=== PATIENT | female | born 1935 | race Caucasian/White ===

== ENCOUNTER → 2016-09-15 | Outpatient (REF) | payer MEDICARE, OTHER ==
[~2016-09-15] MED LIST: ACET650T2 PO; ALLO100T PO; AMLO25TA PO; AMLO5TAB2 PO; ASPI81TA85 PO; CALC600T7 PO; CALCTAB43 PO; CARV25TA PO; CEPA5.4L2 MT; CORE25TA PO; DULC5TAB PO; FERR325T3 PO; FLON0.054; GLIP5TAB8 PO; GLYB5TA PO; HYDR-3713 PO; HYDR-4266 PO; HYDR12.55 PO; INSULADS SC; K-TA10TA2 PO; LANTINJ4 SC; LASI20TA PO; LEVO200T4 PO; LEVO25TA5 PO; LEVO75TA4 PO; MULTCAP PO; PROT1TAB2 PO; PROZ40CA PO; REQU1TAB14 PO; ROCA0.25 PO; SIMV40TA2 PO; TYLE325T5 PO; TYLE650T30 PO; VITA200016 PO; XANA0.25 PO; ZOCO40TA PO; robitussin PO
[2016-09-15 18:10] LABS: FREE T4 1.36 NG/DL (0.76-1.46)
== END ==
LOC: M LAB REF 17:02
PROVIDERS: ATTEND Internal Medicine Nephrology
DX: N18.5 Chronic kidney disease, stage 5 (principal); E03.9 Hypothyroidism, unspecified

== ENCOUNTER → 2016-11-15 | Outpatient (REF) | payer MEDICARE, OTHER ==
[2016-11-15 13:59] LABS: FREE T4 1.16 NG/DL (0.76-1.46); PERCENT SATURATION 25.4 % (13.2-37.4)
== END ==
LOC: M LAB REF 13:05
PROVIDERS: ATTEND Internal Medicine Nephrology
DX: E03.9 Hypothyroidism, unspecified (principal); D63.1 Anemia in chronic kidney disease

== ENCOUNTER 2017-02-11 20:46 | Emergency (ER) | payer MEDICARE, BC, OTHER ==
[~2017-02-11] VITALS: Ht 157.5 cm; Wt 70.0 kg
[~2017-02-11 20:46] MED LIST changes: -ACET650T2 PO; +ACET650T3 PO; -CALCTAB43 PO; +CALCTAB74 PO; +HYDR-3910 PO; -HYDR-4266 PO
[2017-02-11] MEDS ORDERED: LEVO150T7 PO (21:31)
[2017-02-11] MEDS ORDERED: CALC1CAP31 PO (21:31)
[2017-02-11] MEDS ORDERED: FLON1SPR (21:31)
[2017-02-11] MEDS ORDERED: PROC1INJ5 IV (21:31)
[2017-02-11] MEDS ORDERED: GLIM2TAB PO (21:31)
[2017-02-11] MEDS ORDERED: RENA1TAB PO (21:31)
[2017-02-11] MEDS ORDERED: TOLT1CAP4 PO (21:31)
[2017-02-11 22:19] LABS: BASO # 0.1 K/mm3 (0.0-0.2); BASO % 1.1 % (0.0-1.0); EOS # 0.3 K/mm3 (0.0-0.50); EOS % 4.6 % (0.0-3.0); LARGE UNSTAINED CELL # 0.3 K/mm3 (0.0-0.4); LARGE UNSTAINED CELL % 4.1 % (0.0-4.0); LYMPH # 0.4 K/mm3 (1.5-4.5); LYMPH % 5.6 % (24.0-44.0); MEAN CORPUSCULAR HEMOGLOBIN 31.5 pg (27.0-33.0); MEAN CORPUSCULAR HGB CONC 32.1 g/dl (32.0-36.5); MEAN CORPUSCULAR VOLUME 98.2 fl (80.0-96.0); MONO # 0.6 K/mm3 (0.0-0.8); MONO % 8.3 % (0.0-5.0); NEUTROPHILS # 5.4 K/mm3 (1.8-7.7); NEUTROPHILS % 76.2 % (36.0-66.0); PLATELET COUNT, AUTOMATED 200 k/mm3 (150-450); RED CELL DISTRIBUTION WIDTH 17.5 % (11.5-14.5); WHITE BLOOD COUNT 7.1 K/mm3 (4.0-10.0)
[2017-02-11 22:40] LABS: CALCIUM LEVEL 8.9 MG/DL (8.8-10.2); CREATININE FOR GFR 4.62 MG/DL (0.55-1.02); GLOMERULAR FILTRATION RATE 9.7 (>39); POTASSIUM SERUM 3.8 MEQ/L (3.5-5.1)
[2017-02-12 00:12] LABS: ABG BASE EXCESS -3.5 (-2.0-2.0); ABG HCO3 20.5 MEQ/L (22.0-26.0); ABG PARTIAL PRESSURE CO2 33.1 mmHg (35.0-45.0); ABG PARTIAL PRESSURE O2 95.4 mmHg (75.0-100.0); ABG STANDARD HCO3 21.6 MEQ/L (22.0-26.0); ABG TOTAL CO2 21.5 MEQ/L (23.0-31.0)
[2017-02-12 01:49] VITALS: BP 128/78
--- NOTE | 2017-02-12 07:42 | REP ---
Clinical: Dyspnea. Comparison: 10/07/2014. Findings: Chronic cardiomegaly and diffuse chronic interstitial changes are appreciated. Superimposed basilar atelectasis cannot be excluded. No effusion. No pneumothorax. Skeletal structures intact. Impression: Chronic-appearing changes. Cannot exclude subtle superimposed atelectasis. I Signed by Vitaliy Gaxiola MD 02/12/2017 07:34 A
== END 2017-02-12 02:28 | disposition home or self-care (01) ==
LOC: M ED 20:46 → EDBD 20:46 → M ED 02-12 02:28
DX: N18.9 Chronic kidney disease, unspecified (principal); R06.00 Dyspnea, unspecified; R05 Cough; E11.9 Type 2 diabetes mellitus without complications; I12.9 Hypertensive chronic kidney disease with stage 1 through stage 4 chronic kidney disease, or unspecified chronic kidney disease; E78.5 Hyperlipidemia, unspecified; K21.9 Gastro-esophageal reflux disease without esophagitis; E03.9 Hypothyroidism, unspecified; F33.9 Major depressive disorder, recurrent, unspecified; Z79.82 Long term (current) use of aspirin; Z79.899 Other long term (current) drug therapy; Z79.4 Long term (current) use of insulin; Z88.1 Allergy status to other antibiotic agents; Z88.2 Allergy status to sulfonamides

== ENCOUNTER → 2017-03-08 | Outpatient (REF) | payer MEDICARE, OTHER ==
[~2017-03-08] MED LIST changes: +CALC1CAP31 PO; +FLON1SPR; +GLIM2TAB PO; +LEVO150T7 PO; +PROC1INJ5 IV; +RENA1TAB PO; +TOLT1CAP4 PO
[2017-03-08 18:40] LABS: INR 1.07
[2017-03-09 10:33] LABS: HEPATITIS B SURFACE ANTIBODY NEGATIVE (POSITIVE)
== END ==
LOC: M LAB REF 17:01
PROVIDERS: ATTEND Internal Medicine Nephrology
DX: N18.6 End stage renal disease (principal); D68.9 Coagulation defect, unspecified

== ENCOUNTER → 2017-03-10 | Outpatient (CLI) | payer MEDICARE, BC, OTHER ==
[~2017-03-10] MED LIST changes: +HEPARIN 1,000 UNITS/ML 10ML VIAL (FOR RADIOLOGY& DIALYSIS ONLY) As Ordered ONE; +LIDOCAINE 2% MDV 20 ML VIAL As Ordered ONE
--- NOTE | 2017-03-10 11:15 | ROOPDOC ---
[facility] Report Of Operation Report of Operation DATE OF PROCEDURE: 03/10/17 PREPROCEDURE DIAGNOSES: End-stage renal disease requiring hemodialysis. POSTPROCEDURE DIAGNOSES: End-stage renal disease requiring hemodialysis. PROCEDURE: Ultrasound and fluoroscopic guided right internal jugular vein 19 cm tip to cuff tunneled central venous catheter placement. SURGEON: Dr. Martha Ziegler MD ARM REST BUILDER: Virginia Stubbs, photographic reproduction technician INDICATION: Patient is a 81-year-old white female with end-stage renal disease, and who requires access for hemodialysis. Patient was evaluated will undergo right internal jugular vein central venous tunneled catheter placement. Risks benefits and alternative treatment options were discussed with the patient. Benefits included but were not limited to access for hemodialysis. Alternative treatment options included but were not limited to no intervention. The risks included but were not limited to infection, bleeding, pneumothorax, hemothorax, possible need for open surgical intervention, cerebrovascular accident, myocardial infarction, pulmonary embolus, DVT, loss of limb, loss of life and poor outcome. All the patient's questions were answered, the patient understands the risks benefits and alternative treatment options, patient agrees to proceed with a right internal jugular vein tunneled central venous catheter placement. ANESTHESIA: Local with sedation: 20 cc of 2 % lidocaine, no Versed or fentanyl were used.. ESTIMATED BLOOD LOSS: Minimal. IVF: 50 cc FLUOROSCOPIC TIME: 0.5 min. CONTRAST: None COMPLICATIONS: None DRAINS: None SPECIMENS: None IMPLANTS: Right internal jugular vein 19 cm tip to cuff tunneled central venous catheter with insertion of EvenMore PermCath. PROCEDURE: Patient was taken to the angiography suite, placed supine on the angiography room table and after performing a time out confirming the correct patient and procedure, the patient was prepped and draped in a standard surgical fashion. Ultrasound was used to evaluate the right internal jugular vein, which was noted to be easily compressible, free of thrombus and widely patent. Ultrasound was then used to guide cannulation of the right internal jugular vein with a micro-puncture needle after anesthetizing the overlying skin with 2 % lidocaine. Ultrasound guidance for vascular access was performed with concurrent real-time ultrasound visualization of the needle entering into the right internal jugular vein, with permanent recording of the ultrasound guidance with a hard copy image preserved. The micropuncture wire was then advanced to the micropuncture needle which was upsized to a micropuncture sheath. An Amplatz wire was then advanced to the micropuncture sheath under fluoroscopic guidance. The right internal jugular vein was then sequentially dilated under fluoroscopic guidance and an introducer sheath was positioned. A 19 cm tip to cuff catheter was then tunneled through a puncture wound in the right chest and brought out at the puncture wound at the right internal jugular vein entry site after anesthetizing the overlying skin with 2 % lidocaine. The catheter was advanced through the introducer sheath and positioned with the tip in the superior vena cava right atrial junction under fluoroscopic guidance. Both ports of the catheter were then aspirated, noted to aspirate easily and then flushed with heparinized saline. The catheter was secured to the anterior chest wall using 2-0 Prolene suture after anesthetizing the overlying skin with 2 % lidocaine. The puncture wound in the right neck was closed using a 4-0 Vicryl suture in an inverted interrupted fashion. All instrument, sponge and needle counts were correct at the end of the case. There were no complications. Dr. Ziegler was present for and directed the entire case. The tunneled central venous catheter is stable for use for hemodialysis access. RADIOLOGIC SUPERVISION AND INTERPRETATION: The initial ultrasound of the right internal jugular vein showed the vein to be widely patent, easily compressible and free of thrombus. Ultrasound was then used to guide cannulation of the right internal jugular vein with a hard copy image preserved. Ultrasound guidance for vascular access was performed with concurrent real-time ultrasound visualization of the needle entering into the right internal jugular vein, with permanent recording of the ultrasound guidance with a hard copy image preserved.The right internal jugular vein was sequentially dilated under fluoroscopic guidance. The final fluoroscopic image showed the catheter to be in good position and good alignment with the tip in the superior vena cava right atrial junction, with no pneumothorax or hemothorax present. The tunneled central venous catheter is stable for used for hemodialysis access. Lopez Ziegler MD Mar 10, 2017 11:15
== END | disposition home or self-care (01) ==
LOC: M IRPRO 07:34
PROVIDERS: ATTEND Internal Medicine Nephrology
DX: N18.6 End stage renal disease (principal)
CPT/HCPCS: 36561; 76937; 77001; C1750; C1769; C1894

== ENCOUNTER → 2017-05-10 | Outpatient (REF) | payer MEDICARE, OTHER ==
[~2017-05-10] MED LIST changes: -HEPARIN 1,000 UNITS/ML 10ML VIAL (FOR RADIOLOGY& DIALYSIS ONLY) As Ordered ONE; -LIDOCAINE 2% MDV 20 ML VIAL As Ordered ONE
== END ==
LOC: M LAB REF 16:56
PROVIDERS: ATTEND Internal Medicine Nephrology
DX: N18.6 End stage renal disease (principal); N39.0 Urinary tract infection, site not specified

== ENCOUNTER → 2017-06-27 | Outpatient (REF) | payer MEDICARE, OTHER | LOC: M LAB REF 13:08 | PROVIDERS: ATTEND Internal Medicine Nephrology | DX: N18.6 End stage renal disease (principal); N39.0 Urinary tract infection, site not specified ==

== ENCOUNTER 2017-07-08 11:48 | Day surgery (SDC) | payer MEDICARE, BC, OTHER ==
[~2017-07-08] VITALS: Ht 165.1 cm; Wt 67.1 kg
[2017-07-08] MEDS ORDERED: MORPHINE 2 MG/ML 1ML SYRINGE As Ordered ONE (15:06)
[2017-07-08] MEDS ORDERED: MORPHINE 2 MG/ML 1ML SYRINGE IV ONE (15:15)
[2017-07-08] MEDS ORDERED: ONDANSETRON 4MG/2ML VIAL (J2405) As Ordered ONE (16:14)
[2017-07-08] MEDS ORDERED: LIDOCAINE 2% INJ 100 MG/5 ML SDV (FOR ANES.) As Ordered ONE (16:14)
[2017-07-08] MEDS ORDERED: PROPOFOL 200 MG/20 ML VIAL As Ordered ONE ×2 (16:14→17:22)
[2017-07-08] MEDS ORDERED: MIDAZOLAM INJ 2 MG/2 ML VIAL (J2250) As Ordered ONE (16:15)
[2017-07-08] MEDS ORDERED: fentaNYL 100 MCG/2 ML INJECTION (J3010) As Ordered ONE ×2 (16:15→17:40)
[2017-07-08] MEDS ORDERED: LIDOCAINE 1% SDV INJ 30 ML VIAL As Ordered ONE (16:42)
[2017-07-08] MEDS ORDERED: BUPIVACAINE HCL 0.5% 30 ML VIAL As Ordered ONE (16:43)
[2017-07-08] MEDS ORDERED: HEPARIN SOD (PORCINE) 5000 UNITS/ML VIAL As Ordered ONE (16:43)
[2017-07-08] MEDS ORDERED: KETAMINE HCL 200 MG/20 ML VIAL As Ordered ONE (17:29)
[2017-07-08] MEDS ORDERED: LABETALOL HCL 100 MG/20 ML VIAL As Ordered ONE (17:36)
[2017-07-08] MEDS ORDERED: METOPROLOL 5 MG/5 ML VIAL As Ordered ONE (17:39)
[2017-07-08 18:45] VITALS: BP 182/86
--- NOTE | 2017-07-29 11:42 | RO ---
DATE OF PROCEDURE: 07/08/2017 PREPROCEDURE DIAGNOSES: End-stage renal disease, right internal jugular vein PermCath. POSTPROCEDURE DIAGNOSES: End-stage renal disease, right internal jugular vein PermCath. PROCEDURE: Left brachiocephalic arteriovenous fistula formation. ATTENDING SURGEON: Dr. Montserrat Ziegler DIRECTOR [place]: None. ANESTHESIA: Local monitored anesthesia care (MAC). INDICATION: Patient is an 82-year-old female with end-stage renal disease who dialyzes through a right internal jugular vein PermCath who requires long-term access. Patient was evaluated, felt to be a good candidate for a left brachiocephalic arteriovenous fistula. Risks, benefits, and alternative treatment options were discussed with the patient. ESTIMATED BLOOD LOSS: 35 mL. IV FLUIDS: 600 mL. HEPARIN: None. COMPLICATIONS: None. DRAINS: None. SPECIMENS: None. IMPLANTS: None. DESCRIPTION OF PROCEDURE: Patient was taken to the operating room, placed supine on the operating room table, and then prepped and draped in a standard surgical fashion. An incision was made transversely at the antecubital fossa after anesthetizing the overlying skin. The cephalic vein and brachial artery were easily identifiable and dissected free proximally and distally and encircled with Vesseloops. The cephalic vein was transected as far distal as possible with the remnant ligated with a #0 silk suture. The cephalic vein was then dilated with heparinized saline, which was noted to dilate easily and flush easily. Cephalic vein was then anastomosed to the brachial artery in an end-to-side fashion using #6-0 Prolene suture. There was good flow in the fistula at the completion of the anastomosis as well as in the brachial artery distal to the arteriovenous anastomosis with Doppler ultrasound evaluation. Hemostasis was obtained, after which the incision was closed using #2-0 Vicryl to approximate the deeper layers and #3-0 Monocryl to approximate the skin in a running subcuticular fashion. All instruments, sponge, and needle counts were correct at the end of the case. There were no complications. Dr. Ziegler was present for and directed the entire case. Patient was transferred to the recovery room and subsequently discharged in stable condition.
== END 2017-07-08 19:01 | disposition home or self-care (01) ==
LOC: M SDC 11:48
PROVIDERS: ATTEND Surgery Vascular Surgery
DX: N18.6 End stage renal disease (principal); I12.0 Hypertensive chronic kidney disease with stage 5 chronic kidney disease or end stage renal disease; E03.9 Hypothyroidism, unspecified; I50.9 Heart failure, unspecified; I35.9 Nonrheumatic aortic valve disorder, unspecified; I48.91 Unspecified atrial fibrillation; E78.00 Pure hypercholesterolemia, unspecified; E11.9 Type 2 diabetes mellitus without complications; M10.9 Gout, unspecified; D64.9 Anemia, unspecified; R29.898 Other symptoms and signs involving the musculoskeletal system; M12.9 Arthropathy, unspecified; M54.5 Low back pain; I69.928 Other speech and language deficits following unspecified cerebrovascular disease; F41.9 Anxiety disorder, unspecified; F32.9 Major depressive disorder, single episode, unspecified; R06.02 Shortness of breath; R32 Unspecified urinary incontinence; Z88.1 Allergy status to other antibiotic agents; Z88.2 Allergy status to sulfonamides; Z79.899 Other long term (current) drug therapy; Z79.82 Long term (current) use of aspirin; Z87.891 Personal history of nicotine dependence
CPT/HCPCS: 36415; 36821; 84132; J2250; J2405; J3010

== ENCOUNTER → 2017-09-05 | Outpatient (CLI) | payer MEDICARE, BC, OTHER | LOC: M PAIN 13:00 | DX: G62.9 Polyneuropathy, unspecified (principal); M54.2 Cervicalgia; E11.9 Type 2 diabetes mellitus without complications; N18.4 Chronic kidney disease, stage 4 (severe); I12.9 Hypertensive chronic kidney disease with stage 1 through stage 4 chronic kidney disease, or unspecified chronic kidney disease; E03.9 Hypothyroidism, unspecified; E78.5 Hyperlipidemia, unspecified; I48.91 Unspecified atrial fibrillation; Z79.82 Long term (current) use of aspirin; Z79.84 Long term (current) use of oral hypoglycemic drugs; Z79.899 Other long term (current) drug therapy; Z87.891 Personal history of nicotine dependence; Z88.8 Allergy status to other drugs, medicaments and biological substances; Z87.19 Personal history of other diseases of the digestive system | CPT/HCPCS: G0463 ==

== ENCOUNTER → 2017-09-09 | Outpatient (CLI) | payer MEDICARE, BC, OTHER ==
[~2017-09-09] MED LIST changes: -ACET650T3 PO; -ALLO100T PO; -AMLO25TA PO; -AMLO5TAB2 PO; -ASPI81TA85 PO; -CALC1CAP31 PO; -CALC600T7 PO; -CALCTAB74 PO; -CARV25TA PO; -CEPA5.4L2 MT; -CORE25TA PO; -DULC5TAB PO; -FERR325T3 PO; -FLON0.054; -FLON1SPR; -GLIM2TAB PO; -GLIP5TAB8 PO; -GLYB5TA PO; -HYDR-3713 PO; -HYDR-3910 PO; -HYDR12.55 PO; -INSULADS SC; +ISOVUE-300 61% 50ML VIAL (Q9967) As Ordered; -K-TA10TA2 PO; -LANTINJ4 SC; -LASI20TA PO; -LEVO150T7 PO; -LEVO200T4 PO; -LEVO25TA5 PO; -LEVO75TA4 PO; +MIDAZOLAM INJ 2 MG/2 ML VIAL (J2250) As Ordered; -MULTCAP PO; -PROC1INJ5 IV; -PROT1TAB2 PO; -PROZ40CA PO; -RENA1TAB PO; -REQU1TAB14 PO; -ROCA0.25 PO; -SIMV40TA2 PO; -TOLT1CAP4 PO; -TYLE325T5 PO; -TYLE650T30 PO; -VITA200016 PO; -XANA0.25 PO; -ZOCO40TA PO; +fentaNYL 100 MCG/2 ML INJECTION (J3010) As Ordered; -robitussin PO
== END | disposition home or self-care (01) ==
LOC: M IRPRO 11:48
DX: T82.858A Stenosis of other vascular prosthetic devices, implants and grafts, initial encounter (principal)
CPT/HCPCS: 36902

== ENCOUNTER → 2017-10-03 | Outpatient (CLI) | payer MEDICARE, BC, OTHER | LOC: M PAIN 13:00 | DX: G62.9 Polyneuropathy, unspecified (principal); M54.2 Cervicalgia; N18.4 Chronic kidney disease, stage 4 (severe); E11.9 Type 2 diabetes mellitus without complications; I48.91 Unspecified atrial fibrillation; I12.9 Hypertensive chronic kidney disease with stage 1 through stage 4 chronic kidney disease, or unspecified chronic kidney disease; E03.9 Hypothyroidism, unspecified; E78.5 Hyperlipidemia, unspecified; Z79.4 Long term (current) use of insulin; Z79.82 Long term (current) use of aspirin; Z79.891 Long term (current) use of opiate analgesic; Z79.899 Other long term (current) drug therapy; Z87.19 Personal history of other diseases of the digestive system; Z87.891 Personal history of nicotine dependence; Z88.8 Allergy status to other drugs, medicaments and biological substances; Z86.73 Personal history of transient ischemic attack (TIA), and cerebral infarction without residual deficits | CPT/HCPCS: G0463 ==

== ENCOUNTER → 2017-12-02 | Outpatient (CLI) | payer MEDICARE, BC, OTHER ==
[~2017-12-02] MED LIST changes: -ISOVUE-300 61% 50ML VIAL (Q9967) As Ordered; +LIDOCAINE 2% MDV 20 ML VIAL As Ordered; -MIDAZOLAM INJ 2 MG/2 ML VIAL (J2250) As Ordered; -fentaNYL 100 MCG/2 ML INJECTION (J3010) As Ordered
== END | disposition home or self-care (01) ==
LOC: M IRPRO 09:57
DX: Z45.2 Encounter for adjustment and management of vascular access device (principal); N18.6 End stage renal disease
CPT/HCPCS: 36589

== ENCOUNTER → 2017-12-12 | Outpatient (CLI) | payer MEDICARE, BC, OTHER | LOC: M PAIN 13:30 | DX: G62.9 Polyneuropathy, unspecified (principal); G89.29 Other chronic pain; N18.4 Chronic kidney disease, stage 4 (severe); E11.22 Type 2 diabetes mellitus with diabetic chronic kidney disease; I12.9 Hypertensive chronic kidney disease with stage 1 through stage 4 chronic kidney disease, or unspecified chronic kidney disease; E78.5 Hyperlipidemia, unspecified; E03.9 Hypothyroidism, unspecified; Z79.82 Long term (current) use of aspirin; Z79.4 Long term (current) use of insulin; Z79.891 Long term (current) use of opiate analgesic; Z79.899 Other long term (current) drug therapy; Z88.2 Allergy status to sulfonamides; Z88.8 Allergy status to other drugs, medicaments and biological substances; Z99.2 Dependence on renal dialysis; Z86.79 Personal history of other diseases of the circulatory system; Z87.891 Personal history of nicotine dependence | CPT/HCPCS: G0463 ==

== ENCOUNTER → 2018-02-13 | Outpatient (CLI) | payer MEDICARE, BC, OTHER | LOC: M PAIN 13:15 | DX: G62.9 Polyneuropathy, unspecified (principal); G89.29 Other chronic pain; N18.4 Chronic kidney disease, stage 4 (severe); E11.22 Type 2 diabetes mellitus with diabetic chronic kidney disease; I12.9 Hypertensive chronic kidney disease with stage 1 through stage 4 chronic kidney disease, or unspecified chronic kidney disease; Z79.82 Long term (current) use of aspirin; Z79.4 Long term (current) use of insulin; Z79.891 Long term (current) use of opiate analgesic; Z79.899 Other long term (current) drug therapy; Z99.2 Dependence on renal dialysis; Z88.2 Allergy status to sulfonamides; Z88.8 Allergy status to other drugs, medicaments and biological substances; Z86.79 Personal history of other diseases of the circulatory system; Z87.891 Personal history of nicotine dependence; Z86.73 Personal history of transient ischemic attack (TIA), and cerebral infarction without residual deficits | CPT/HCPCS: G0463 ==

== ENCOUNTER → 2018-02-27 | Outpatient (REF) | payer MEDICARE, BC, OTHER ==
[2018-02-27 18:40] LABS: APPEARANCE, URINE CLOUDY (CLEAR); BACTERIA, URINE AUTO 2+ (NEGATIVE); BILIRUBIN, URINE AUTO NEGATIVE (NEGATIVE); BLOOD, URINE BLOOD 2+ (NEGATIVE); COLOR, URINE YELLOW (YELLOW); GLUCOSE, URINE (UA) AUTO 1+ mg/dL (NEGATIVE); KETONE, URINE AUTO NEGATIVE (NEGATIVE); LEUKOCYTE ESTERASE, URINE AUTO 2+ (NEGATIVE); MUCUS, URINE SMALL (NEGATIVE); NITRITE, URINE AUTO NEGATIVE (NEGATIVE); PROTEIN, URINE AUTO 3+ mg/dL (NEGATIVE); RBC, URINE AUTO 43 /HPF (0-3); SPECIFIC GRAVITY URINE AUTO 1.015 (1.002-1.035); SQUAMOUS EPITHELIAL CELL UR AU 9 /HPF (0-6); UROBILINOGEN, URINE AUTO 0.2 mg/dL (0.0-2.0); WBC, URINE AUTO 21 /HPF (0-3)
== END ==
LOC: M LAB REF 16:55
DX: N39.0 Urinary tract infection, site not specified (principal); N18.6 End stage renal disease; R31.9 Hematuria, unspecified
CPT/HCPCS: 81001

== ENCOUNTER 2018-04-22 19:46 | Inpatient (IN) | payer MEDICARE, BC, OTHER ==
[2018-04-22 21:00] LABS: BASO # 0.1 10^3/uL (0.0-0.2); BASO % 0.7 % (0.0-1.0); EOS # 0.2 10^3/uL (0.0-0.50); EOS % 3.3 % (0.0-3.0); HEMATOCRIT 31.9 % (36.0-47.0); HEMOGLOBIN 10.9 g/dl (12.0-15.5); IMMATURE GRANULOCYTE % 0.4 % (0-3.0); LYMPH % 14.1 % (24.0-44.0); MEAN CORPUSCULAR HEMOGLOBIN 32.3 pg (27.0-33.0); MEAN CORPUSCULAR HGB CONC 34.2 g/dl (32.0-36.5); MEAN CORPUSCULAR VOLUME 94.7 fl (80.0-96.0); MONO # 0.8 10^3/uL (0.0-0.8); MONO % 11.5 % (0.0-5.0); NEUTROPHILS # 4.9 10^3/uL (1.8-7.7); PLATELET COUNT, AUTOMATED 161 10^3/uL (150-450); RED BLOOD COUNT 3.37 10^6/uL (4.00-5.40); RED CELL DISTRIBUTION WIDTH 13.2 % (11.5-14.5)
[2018-04-22] MEDS: cefTRIAXone SOD 500 MG in D5W MINI-BAG PLUS 50 ML IV (21:00)
[2018-04-22] MEDS ORDERED: CEFTRIAXONE SOD IV (21:15)
[2018-04-22] MEDS ORDERED: D5W MINI IV (21:15)
[2018-04-22 21:18] LABS: AMMONIA 17 uMOL/L (<32)
[2018-04-22 21:30] LABS: ALBUMIN 3.1 GM/DL (3.2-5.2); ALBUMIN/GLOBULIN RATIO 0.62 (1.00-1.93); ALKALINE PHOSPHATASE 125 U/L (45-117); ALT/SGPT 12 U/L (12-78); ANION GAP 12 MEQ/L (8-16); AST/SGOT 20 U/L (7-37); BILIRUBIN,DIRECT 0.2 MG/DL (0.0-0.2); BILIRUBIN,TOTAL 0.7 MG/DL (0.2-1.0); BLOOD UREA NITROGEN 12 MG/DL (7-18); CALCIUM LEVEL 9.3 MG/DL (8.8-10.2); CARBON DIOXIDE LEVEL 29 MEQ/L (21-32); CHLORIDE LEVEL 93 MEQ/L (98-107); CPK CREATINE PHOSPHOKINASE 77 U/L (26-192); CREATININE FOR GFR 2.51 MG/DL (0.55-1.30); FREE THYROXINE INDEX 5.1 % (1.3-4.8); GLOMERULAR FILTRATION RATE 19.6 (>32); GLUCOSE, FASTING 157 MG/DL (70-100); MB/CK RELATIVE INDEX 1.69 (< OR =4); POTASSIUM SERUM 3.1 MEQ/L (3.5-5.1); SODIUM LEVEL 134 MEQ/L (136-145); T UPTAKE 38 % (30-39); THYROXINE (T4) 13.5 UG/DL (4.5-12.0); TOTAL PROTEIN 8.1 GM/DL (6.4-8.2); TROPONIN I 0.02 NG/ML (< 0.10)
[2018-04-22 21:31] LABS: ABG BASE EXCESS 4.5 (-2.0-2.0); ABG HCO3 25.1 MEQ/L (22.0-26.0); ABG O2 SATURATION 94.4 % (95.0-99.0); ABG PARTIAL PRESSURE CO2 25.9 mmHg (35.0-45.0); ABG PARTIAL PRESSURE O2 65.3 mmHg (75.0-100.0); ABG STANDARD HCO3 28.4 MEQ/L (22.0-26.0); ABG TOTAL CO2 25.9 MEQ/L (23.0-31.0)
[2018-04-22 21:38] LABS: ABG pH (ARTERIAL) 7.605 UNITS (7.350-7.450)
[2018-04-22] MEDS: MORPHINE 4 MG/ML 1ML VIAL/SYRINGE (J2270) IV (21:45)
[2018-04-22] MEDS: cloNIDine 0.2 MG TAB PO (22:45)
[2018-04-22] MEDS: MORPHINE 10 MG/ML 1ML VIAL (J2270) IV (22:45)
[2018-04-22] MEDS ORDERED: ISOVUE-370 76% 100ML VIAL (Q9967) As Ordered (22:50)
[2018-04-22] MEDS ORDERED: ONDANSETRON 4MG/2ML VIAL (J2405) As Ordered (23:49)
[2018-04-23] MEDS ORDERED: IPRATROPIUM 0.5MG/ALBUTEROL 2.5MG INH SOL UD 3ML (DUONEB)(J7620) NEB (00:30)
[2018-04-23] MEDS ORDERED: ACETAMINOPHEN TAB 650MG DOSE (2X325MG) PO (00:30)
[2018-04-23] MEDS ORDERED: ONDANSETRON 4MG/2ML VIAL (J2405) IV (00:30)
[2018-04-23] MEDS ORDERED: GLUCOSE 4 GM CHEW TABLET PO (00:30)
[2018-04-23] MEDS ORDERED: FLUTICASONE PROP 0.05% NASAL SPRAY 16 GM (FLONASE) ×2 (00:30)
[2018-04-23] MEDS ORDERED: GLUCAGON FOR INJ 1 MG VIAL (J1610) SC (00:30)
[2018-04-23] MEDS: GABAPENTIN 100 MG CAP PO ×4 (02:12→21:41)
[2018-04-23] MEDS: LEVEMIR (INSULIN DETEMIR) 1 UNITS/0.01ML SC (02:12)
[2018-04-23] MEDS: ALPRAZolam 0.25 MG TAB PO ×2 (02:13→21:41)
[2018-04-23] MEDS: POTASSIUM CHLORIDE 10 MEQ SR TABLET PO (02:13)
[2018-04-23] MEDS: CARVedilol 12.5 MG TAB PO ×3 (02:13→21:00)
[2018-04-23] MEDS: rOPINIRole 0.25 MG TAB(REQUIP) PO ×3 (02:14→21:41)
[2018-04-23] MEDS: AZITHROMYCIN INJ 500 MG, VIAL MATE ADAPTER 1 EACH in D5W 250 ML IV (02:14)
[2018-04-23] MEDS: LEVOTHYROXINE 150MCG TABLET (0.15MG) PO (05:21)
[2018-04-23] MEDS: HEPARIN SOD (PORCINE) 5000 UNITS/ML VIAL SC ×4 (05:21→21:40)
[2018-04-23 05:39] LABS: HEMATOCRIT 30.5 % (36.0-47.0); MEAN CORPUSCULAR HEMOGLOBIN 31.6 pg (27.0-33.0); MEAN CORPUSCULAR HGB CONC 32.8 g/dl (32.0-36.5); MEAN CORPUSCULAR VOLUME 96.5 fl (80.0-96.0); PLATELET COUNT, AUTOMATED 135 10^3/uL (150-450); RED BLOOD COUNT 3.16 10^6/uL (4.00-5.40); RED CELL DISTRIBUTION WIDTH 13.2 % (11.5-14.5); WHITE BLOOD COUNT 6.4 10^3/uL (4.0-10.0)
[2018-04-23 06:06] LABS: ANION GAP 7 MEQ/L (8-16); BLOOD UREA NITROGEN 16 MG/DL (7-18); CALCIUM LEVEL 8.9 MG/DL (8.8-10.2); CARBON DIOXIDE LEVEL 34 MEQ/L (21-32); CHLORIDE LEVEL 96 MEQ/L (98-107); CREATININE FOR GFR 3.13 MG/DL (0.55-1.30); GLOMERULAR FILTRATION RATE 15.2 (>32); GLUCOSE, FASTING 124 MG/DL (70-100); POTASSIUM SERUM 3.6 MEQ/L (3.5-5.1); SODIUM LEVEL 137 MEQ/L (136-145)
[2018-04-23] MEDS: (RENVELA) SEVELAMER **CARBONate** 800 MG TAB PO ×3 (09:14→17:23)
[2018-04-23] MEDS: amLODIPine 5 MG TAB PO (09:16)
[2018-04-23] MEDS: FLUoxetine 20 MG CAP PO (09:16)
[2018-04-23] MEDS: TOLTERODINE TARTRATE 2 MG LA CAP (DETROL LA) PO (09:16)
[2018-04-23] MEDS: ASPIRIN 81 MG ENTERIC TAB PO (09:16)
[2018-04-23] MEDS: HumaLOG INSULIN (NovoLOG) PER UNIT SC ×4 (09:17→21:00)
[2018-04-23 11:23] LABS: BEDSIDE GLUCOSE 39 MG/DL (83-110)
[2018-04-23] MEDS: DEXTROSE 50% 50 ML SYRINGE IV (11:28)
[2018-04-23 11:47] LABS: BEDSIDE GLUCOSE 101 MG/DL (83-110)
[2018-04-23] MEDS: oxyCODONE 5MG TAB PO (14:36)
[2018-04-23 17:04] LABS: BEDSIDE GLUCOSE 133 MG/DL (83-110)
[2018-04-23 20:50] LABS: BEDSIDE GLUCOSE 141 MG/DL (83-110)
[2018-04-23] MEDS: NYSTATIN 100,000 UNITS/GM TOPICAL PWD 15 GM TOP (21:40)
[2018-04-23] MEDS: cefTRIAXone SOD 1 GM in D5W MINI-BAG PLUS 50 ML IV (21:41)
[2018-04-24] MEDS: AZITHROMYCIN INJ 500 MG, VIAL MATE ADAPTER 1 EACH in D5W 250 ML IV (01:26)
[2018-04-24 05:31] LABS: HEMATOCRIT 30.6 % (36.0-47.0); HEMOGLOBIN 9.7 g/dl (12.0-15.5); MEAN CORPUSCULAR HEMOGLOBIN 31.8 pg (27.0-33.0); MEAN CORPUSCULAR HGB CONC 31.7 g/dl (32.0-36.5); MEAN CORPUSCULAR VOLUME 100.3 fl (80.0-96.0); PLATELET COUNT, AUTOMATED 127 10^3/uL (150-450); RED BLOOD COUNT 3.05 10^6/uL (4.00-5.40); RED CELL DISTRIBUTION WIDTH 13.8 % (11.5-14.5); WHITE BLOOD COUNT 7.3 10^3/uL (4.0-10.0)
[2018-04-24] MEDS: LEVOTHYROXINE 150MCG TABLET (0.15MG) PO (05:35)
[2018-04-24] MEDS: HEPARIN SOD (PORCINE) 5000 UNITS/ML VIAL SC ×3 (05:35→21:05)
[2018-04-24 06:04] LABS: ANION GAP 10 MEQ/L (8-16); BLOOD UREA NITROGEN 32 MG/DL (7-18); CALCIUM LEVEL 9.1 MG/DL (8.8-10.2); CARBON DIOXIDE LEVEL 30 MEQ/L (21-32); CHLORIDE LEVEL 94 MEQ/L (98-107); CREATININE FOR GFR 5.06 MG/DL (0.55-1.30); GLOMERULAR FILTRATION RATE 8.7 (>32); GLUCOSE, FASTING 109 MG/DL (70-100); POTASSIUM SERUM 4.4 MEQ/L (3.5-5.1); SODIUM LEVEL 134 MEQ/L (136-145)
[2018-04-24] MEDS: HumaLOG INSULIN (NovoLOG) PER UNIT SC ×4 (07:30→21:00)
[2018-04-24] MEDS: TOLTERODINE TARTRATE 2 MG LA CAP (DETROL LA) PO (08:35)
[2018-04-24] MEDS: (RENVELA) SEVELAMER **CARBONate** 800 MG TAB PO ×3 (08:35→17:35)
[2018-04-24] MEDS: FLUoxetine 20 MG CAP PO (08:35)
[2018-04-24] MEDS: GABAPENTIN 100 MG CAP PO ×3 (08:35→21:05)
[2018-04-24] MEDS: rOPINIRole 0.25 MG TAB(REQUIP) PO ×2 (08:35→21:06)
[2018-04-24] MEDS: amLODIPine 5 MG TAB PO (08:36)
[2018-04-24] MEDS: ASPIRIN 81 MG ENTERIC TAB PO (08:36)
[2018-04-24] MEDS: CARVedilol 12.5 MG TAB PO ×2 (08:36→21:06)
[2018-04-24] MEDS: NYSTATIN 100,000 UNITS/GM TOPICAL PWD 15 GM TOP ×2 (08:36→21:00)
[2018-04-24 11:34] LABS: BEDSIDE GLUCOSE 154 MG/DL (83-110)
[2018-04-24] MEDS ORDERED: DARBEPOETIN 100 MCG/0.5 ML *DIALYSIS* SYRINGE (J0882) IV (12:00)
[2018-04-24 16:47] LABS: BEDSIDE GLUCOSE 131 MG/DL (83-110)
[2018-04-24] MEDS: oxyCODONE 5MG TAB PO (18:23)
[2018-04-24 21:03] LABS: BEDSIDE GLUCOSE 165 MG/DL (83-110)
[2018-04-24] MEDS: cefTRIAXone SOD 1 GM in D5W MINI-BAG PLUS 50 ML IV (21:05)
[2018-04-24] MEDS: ALPRAZolam 0.25 MG TAB PO (21:06)
[2018-04-25] MEDS: oxyCODONE 5MG TAB PO ×2 (02:25→16:23)
[2018-04-25] MEDS: AZITHROMYCIN INJ 500 MG, VIAL MATE ADAPTER 1 EACH in D5W 250 ML IV (02:25)
[2018-04-25] MEDS: FLUoxetine 20 MG CAP PO (06:26)
[2018-04-25] MEDS: GABAPENTIN 100 MG CAP PO ×3 (06:26→20:20)
[2018-04-25] MEDS: rOPINIRole 0.25 MG TAB(REQUIP) PO ×2 (06:26→20:19)
[2018-04-25] MEDS: (RENVELA) SEVELAMER **CARBONate** 800 MG TAB PO ×3 (06:26→18:00)
[2018-04-25] MEDS: LEVOTHYROXINE 150MCG TABLET (0.15MG) PO (06:27)
[2018-04-25] MEDS: ASPIRIN 81 MG ENTERIC TAB PO (06:27)
[2018-04-25] MEDS: HumaLOG INSULIN (NovoLOG) PER UNIT SC ×4 (06:27→21:00)
[2018-04-25] MEDS: TOLTERODINE TARTRATE 2 MG LA CAP (DETROL LA) PO (06:27)
[2018-04-25] MEDS: HEPARIN SOD (PORCINE) 5000 UNITS/ML VIAL SC ×3 (06:27→21:17)
[2018-04-25] MEDS: amLODIPine 5 MG TAB PO (06:28)
[2018-04-25] MEDS: CARVedilol 12.5 MG TAB PO ×2 (06:28→20:20)
[2018-04-25 06:38] LABS: BEDSIDE GLUCOSE 135 MG/DL (83-110)
[2018-04-25 06:38] LABS: HEMATOCRIT 30.3 % (36.0-47.0); HEMOGLOBIN 9.9 g/dl (12.0-15.5); MEAN CORPUSCULAR HEMOGLOBIN 31.7 pg (27.0-33.0); MEAN CORPUSCULAR HGB CONC 32.7 g/dl (32.0-36.5); MEAN CORPUSCULAR VOLUME 97.1 fl (80.0-96.0); PLATELET COUNT, AUTOMATED 121 10^3/uL (150-450); RED BLOOD COUNT 3.12 10^6/uL (4.00-5.40); RED CELL DISTRIBUTION WIDTH 13.3 % (11.5-14.5); WHITE BLOOD COUNT 5.7 10^3/uL (4.0-10.0)
[2018-04-25 07:04] LABS: ANION GAP 7 MEQ/L (8-16); BLOOD UREA NITROGEN 47 MG/DL (7-18); CALCIUM LEVEL 8.4 MG/DL (8.8-10.2); CARBON DIOXIDE LEVEL 32 MEQ/L (21-32); CHLORIDE LEVEL 86 MEQ/L (98-107); GLOMERULAR FILTRATION RATE 6.8 (>32); GLUCOSE, FASTING 158 MG/DL (70-100); POTASSIUM SERUM 4.8 MEQ/L (3.5-5.1); SODIUM LEVEL 125 MEQ/L (136-145)
[2018-04-25] MEDS: NYSTATIN 100,000 UNITS/GM TOPICAL PWD 15 GM TOP ×2 (08:37→20:20)
[2018-04-25] MEDS: LIDOCAINE 1% SDV 5 ML VIAL SQ (11:45)
[2018-04-25] MEDS: HEPARIN 1,000 UNITS/ML 10ML VIAL (FOR RADIOLOGY& DIALYSIS ONLY) IV (11:45)
[2018-04-25 13:26] LABS: BEDSIDE GLUCOSE 147 MG/DL (83-110)
[2018-04-25 17:09] LABS: BEDSIDE GLUCOSE 166 MG/DL (83-110)
[2018-04-25] MEDS: CEFDINIR 300 MG CAP (OMNICEF) PO (18:00)
[2018-04-25] MEDS: ALPRAZolam 0.25 MG TAB PO (20:19)
[2018-04-25] MEDS ORDERED: CEFDINIR 300 MG CAP (OMNICEF) PO (21:00)
[2018-04-25 21:10] LABS: BEDSIDE GLUCOSE 165 MG/DL (83-110)
[2018-04-26] MEDS: HEPARIN SOD (PORCINE) 5000 UNITS/ML VIAL SC ×3 (05:28→21:29)
[2018-04-26] MEDS: LEVOTHYROXINE 150MCG TABLET (0.15MG) PO (06:06)
[2018-04-26 07:11] LABS: HEMATOCRIT 29.4 % (36.0-47.0); HEMOGLOBIN 9.5 g/dl (12.0-15.5); MEAN CORPUSCULAR HEMOGLOBIN 31.9 pg (27.0-33.0); MEAN CORPUSCULAR HGB CONC 32.3 g/dl (32.0-36.5); MEAN CORPUSCULAR VOLUME 98.7 fl (80.0-96.0); PLATELET COUNT, AUTOMATED 144 10^3/uL (150-450); RED BLOOD COUNT 2.98 10^6/uL (4.00-5.40); RED CELL DISTRIBUTION WIDTH 13.6 % (11.5-14.5); WHITE BLOOD COUNT 7.4 10^3/uL (4.0-10.0)
[2018-04-26] MEDS: HumaLOG INSULIN (NovoLOG) PER UNIT SC ×4 (07:30→20:33)
[2018-04-26 07:47] LABS: ANION GAP 10 MEQ/L (8-16); BLOOD UREA NITROGEN 32 MG/DL (7-18); CALCIUM LEVEL 8.6 MG/DL (8.8-10.2); CARBON DIOXIDE LEVEL 27 MEQ/L (21-32); CHLORIDE LEVEL 97 MEQ/L (98-107); GLUCOSE, FASTING 134 MG/DL (70-100); POTASSIUM SERUM 4.2 MEQ/L (3.5-5.1); SODIUM LEVEL 134 MEQ/L (136-145)
[2018-04-26] MEDS: TOLTERODINE TARTRATE 2 MG LA CAP (DETROL LA) PO (08:55)
[2018-04-26] MEDS: ASPIRIN 81 MG ENTERIC TAB PO (08:56)
[2018-04-26] MEDS: GABAPENTIN 100 MG CAP PO ×3 (08:56→20:34)
[2018-04-26] MEDS: (RENVELA) SEVELAMER **CARBONate** 800 MG TAB PO ×3 (08:56→17:38)
[2018-04-26] MEDS: amLODIPine 5 MG TAB PO (08:56)
[2018-04-26] MEDS: rOPINIRole 0.25 MG TAB(REQUIP) PO ×2 (08:56→20:34)
[2018-04-26] MEDS: FLUoxetine 20 MG CAP PO (08:56)
[2018-04-26] MEDS: CARVedilol 12.5 MG TAB PO ×2 (08:57→20:32)
[2018-04-26] MEDS: NYSTATIN 100,000 UNITS/GM TOPICAL PWD 15 GM TOP ×2 (08:58→20:36)
[2018-04-26] MEDS: oxyCODONE 5MG TAB PO ×2 (09:06→20:34)
[2018-04-26 11:44] LABS: BEDSIDE GLUCOSE 161 MG/DL (83-110)
[2018-04-26 17:03] LABS: BEDSIDE GLUCOSE 145 MG/DL (83-110)
[2018-04-26 19:36] LABS: BEDSIDE GLUCOSE 178 MG/DL (83-110)
[2018-04-26] MEDS: ALPRAZolam 0.25 MG TAB PO (20:34)
[2018-04-27] MEDS: HEPARIN SOD (PORCINE) 5000 UNITS/ML VIAL SC ×3 (05:55→21:24)
[2018-04-27] MEDS: LEVOTHYROXINE 150MCG TABLET (0.15MG) PO (06:06)
[2018-04-27] MEDS: TOLTERODINE TARTRATE 2 MG LA CAP (DETROL LA) PO (06:06)
[2018-04-27] MEDS: (RENVELA) SEVELAMER **CARBONate** 800 MG TAB PO ×3 (06:06→17:18)
[2018-04-27] MEDS: amLODIPine 5 MG TAB PO (06:07)
[2018-04-27] MEDS: FLUoxetine 20 MG CAP PO (06:07)
[2018-04-27] MEDS: NYSTATIN 100,000 UNITS/GM TOPICAL PWD 15 GM TOP ×2 (06:07→21:23)
[2018-04-27] MEDS: GABAPENTIN 100 MG CAP PO ×3 (06:07→21:22)
[2018-04-27] MEDS: ASPIRIN 81 MG ENTERIC TAB PO (06:07)
[2018-04-27] MEDS: CARVedilol 12.5 MG TAB PO ×2 (06:08→21:23)
[2018-04-27] MEDS: rOPINIRole 0.25 MG TAB(REQUIP) PO ×2 (06:08→21:22)
[2018-04-27 06:11] LABS: HEMATOCRIT 29.1 % (36.0-47.0); HEMOGLOBIN 9.4 g/dl (12.0-15.5); MEAN CORPUSCULAR HEMOGLOBIN 31.6 pg (27.0-33.0); MEAN CORPUSCULAR HGB CONC 32.3 g/dl (32.0-36.5); PLATELET COUNT, AUTOMATED 154 10^3/uL (150-450); RED BLOOD COUNT 2.97 10^6/uL (4.00-5.40); RED CELL DISTRIBUTION WIDTH 13.5 % (11.5-14.5); WHITE BLOOD COUNT 5.6 10^3/uL (4.0-10.0)
[2018-04-27] MEDS: oxyCODONE 5MG TAB PO ×3 (06:15→21:36)
[2018-04-27 06:34] LABS: ANION GAP 7 MEQ/L (8-16); BLOOD UREA NITROGEN 40 MG/DL (7-18); CALCIUM LEVEL 8.7 MG/DL (8.8-10.2); CARBON DIOXIDE LEVEL 29 MEQ/L (21-32); CHLORIDE LEVEL 93 MEQ/L (98-107); CREATININE FOR GFR 5.62 MG/DL (0.55-1.30); GLOMERULAR FILTRATION RATE 7.7 (>32); GLUCOSE, FASTING 113 MG/DL (70-100); POTASSIUM SERUM 4.1 MEQ/L (3.5-5.1); SODIUM LEVEL 129 MEQ/L (136-145)
[2018-04-27] MEDS: HumaLOG INSULIN (NovoLOG) PER UNIT SC ×4 (07:30→20:59)
[2018-04-27 17:04] LABS: BEDSIDE GLUCOSE 188 MG/DL (83-110)
[2018-04-27] MEDS: CEFDINIR 300 MG CAP (OMNICEF) PO (17:18)
[2018-04-27 20:33] LABS: BEDSIDE GLUCOSE 153 MG/DL (83-110)
[2018-04-27] MEDS: ALPRAZolam 0.25 MG TAB PO (21:22)
[2018-04-28] MEDS: LEVOTHYROXINE 150MCG TABLET (0.15MG) PO (05:35)
[2018-04-28] MEDS: HEPARIN SOD (PORCINE) 5000 UNITS/ML VIAL SC (05:35)
[2018-04-28 06:21] LABS: HEMATOCRIT 28.9 % (36.0-47.0); HEMOGLOBIN 9.2 g/dl (12.0-15.5); MEAN CORPUSCULAR HEMOGLOBIN 31.5 pg (27.0-33.0); MEAN CORPUSCULAR HGB CONC 31.8 g/dl (32.0-36.5); PLATELET COUNT, AUTOMATED 149 10^3/uL (150-450); RED BLOOD COUNT 2.92 10^6/uL (4.00-5.40); RED CELL DISTRIBUTION WIDTH 13.5 % (11.5-14.5); WHITE BLOOD COUNT 5.7 10^3/uL (4.0-10.0)
[2018-04-28 06:43] LABS: ANION GAP 9 MEQ/L (8-16); BLOOD UREA NITROGEN 24 MG/DL (7-18); CALCIUM LEVEL 8.6 MG/DL (8.8-10.2); CARBON DIOXIDE LEVEL 27 MEQ/L (21-32); CHLORIDE LEVEL 98 MEQ/L (98-107); CREATININE FOR GFR 3.68 MG/DL (0.55-1.30); GLOMERULAR FILTRATION RATE 12.6 (>32); GLUCOSE, FASTING 114 MG/DL (70-100); SODIUM LEVEL 134 MEQ/L (136-145)
[2018-04-28] MEDS: HumaLOG INSULIN (NovoLOG) PER UNIT SC (07:30)
[2018-04-28] MEDS: amLODIPine 5 MG TAB PO (08:48)
[2018-04-28] MEDS: (RENVELA) SEVELAMER **CARBONate** 800 MG TAB PO (08:48)
[2018-04-28] MEDS: rOPINIRole 0.25 MG TAB(REQUIP) PO (08:48)
[2018-04-28] MEDS: TOLTERODINE TARTRATE 2 MG LA CAP (DETROL LA) PO (08:48)
[2018-04-28] MEDS: GABAPENTIN 100 MG CAP PO (08:48)
[2018-04-28] MEDS: ASPIRIN 81 MG ENTERIC TAB PO (08:48)
[2018-04-28] MEDS: FLUoxetine 20 MG CAP PO (08:48)
[2018-04-28] MEDS: CARVedilol 12.5 MG TAB PO (08:49)
[2018-04-28] MEDS: NYSTATIN 100,000 UNITS/GM TOPICAL PWD 15 GM TOP (08:52)
[2018-04-28] MEDS: oxyCODONE 5MG TAB PO (08:59)
== END 2018-04-28 11:38 | disposition home health service (06) | DRG 193 ==
LOC: M ED INP 04-23 00:26 → M PCU 04-23 01:38 → M MS4PR 04-24 15:15 → M MSPAV 04-26 21:54 → M MS4PR 04-24 15:20 → M ED 19:46
PROC: 5A1D70Z Performance of Urinary Filtration, Intermittent, Less than 6 Hours Per Day (ICD-10-PCS; principal; 2018-04-25)
DX: J18.9 Pneumonia, unspecified organism (principal); J96.01 Acute respiratory failure with hypoxia; N18.6 End stage renal disease; G93.41 Metabolic encephalopathy; I13.2 Hypertensive heart and chronic kidney disease with heart failure and with stage 5 chronic kidney disease, or end stage renal disease; E87.1 Hypo-osmolality and hyponatremia; T80.818A Extravasation of other vesicant agent, initial encounter; M10.9 Gout, unspecified; I48.91 Unspecified atrial fibrillation; R53.1 Weakness; I35.0 Nonrheumatic aortic (valve) stenosis; E87.6 Hypokalemia; E03.9 Hypothyroidism, unspecified; K21.9 Gastro-esophageal reflux disease without esophagitis; F32.9 Major depressive disorder, single episode, unspecified; D63.1 Anemia in chronic kidney disease; F41.9 Anxiety disorder, unspecified; E11.22 Type 2 diabetes mellitus with diabetic chronic kidney disease; G25.81 Restless legs syndrome; I50.9 Heart failure, unspecified; Z95.828 Presence of other vascular implants and grafts; Z90.710 Acquired absence of both cervix and uterus; Z79.82 Long term (current) use of aspirin; Z79.4 Long term (current) use of insulin; Z88.2 Allergy status to sulfonamides; Z88.1 Allergy status to other antibiotic agents; Z87.891 Personal history of nicotine dependence; Z99.2 Dependence on renal dialysis; Y82.9 Unspecified medical devices associated with adverse incidents

== ENCOUNTER → 2018-05-12 | Outpatient (REF) | payer MEDICARE, BC ==
[2018-05-12 16:05] LABS: BASO # 0.1 10^3/uL (0.0-0.2); BASO % 1.1 % (0.0-1.0); EOS # 0.2 10^3/uL (0.0-0.50); EOS % 3.8 % (0.0-3.0); HEMATOCRIT 33.1 % (36.0-47.0); HEMOGLOBIN 10.4 g/dl (12.0-15.5); LYMPH # 0.8 10^3/uL (1.5-4.5); LYMPH % 17.2 % (24.0-44.0); MEAN CORPUSCULAR HEMOGLOBIN 31.2 pg (27.0-33.0); MEAN CORPUSCULAR HGB CONC 31.4 g/dl (32.0-36.5); MEAN CORPUSCULAR VOLUME 99.4 fl (80.0-96.0); MONO # 0.6 10^3/uL (0.0-0.8); MONO % 13.5 % (0.0-5.0); NEUTROPHILS # 2.9 10^3/uL (1.8-7.7); NEUTROPHILS % 64.4 % (36.0-66.0); PLATELET COUNT, AUTOMATED 151 10^3/uL (150-450); RED BLOOD COUNT 3.33 10^6/uL (4.00-5.40); WHITE BLOOD COUNT 4.5 10^3/uL (4.0-10.0)
[2018-05-12 16:11] LABS: ANION GAP 6 MEQ/L (8-16); BLOOD UREA NITROGEN 23 MG/DL (7-18); CALCIUM LEVEL 9.1 MG/DL (8.8-10.2); CARBON DIOXIDE LEVEL 36 MEQ/L (21-32); CHLORIDE LEVEL 95 MEQ/L (98-107); CREATININE FOR GFR 3.76 MG/DL (0.55-1.30); GLOMERULAR FILTRATION RATE 12.3 (>32); GLUCOSE, FASTING 106 MG/DL (70-100); POTASSIUM SERUM 4.4 MEQ/L (3.5-5.1); SODIUM LEVEL 137 MEQ/L (136-145)
== END ==
LOC: M SHH 15:22
DX: R93.1 Abnormal findings on diagnostic imaging of heart and coronary circulation (principal)
CPT/HCPCS: 80048

== ENCOUNTER 2018-05-28 12:32 | Inpatient (IN) | payer MEDICARE, BC, OTHER ==
[2018-05-28 15:24] LABS: BASO # 0.1 10^3/uL (0.0-0.2); BASO % 0.8 % (0.0-1.0); EOS # 0.1 10^3/uL (0.0-0.50); EOS % 1.5 % (0.0-3.0); HEMATOCRIT 30.4 % (36.0-47.0); HEMOGLOBIN 9.7 g/dl (12.0-15.5); IMMATURE GRANULOCYTE % 0.8 % (0-3.0); LYMPH # 0.9 10^3/uL (1.5-4.5); LYMPH % 10.7 % (24.0-44.0); MEAN CORPUSCULAR HEMOGLOBIN 31.4 pg (27.0-33.0); MEAN CORPUSCULAR HGB CONC 31.9 g/dl (32.0-36.5); MEAN CORPUSCULAR VOLUME 98.4 fl (80.0-96.0); MONO % 12.2 % (0.0-5.0); NEUTROPHILS # 5.9 10^3/uL (1.8-7.7); PLATELET COUNT, AUTOMATED 114 10^3/uL (150-450); RED BLOOD COUNT 3.09 10^6/uL (4.00-5.40); RED CELL DISTRIBUTION WIDTH 16.1 % (11.5-14.5); WHITE BLOOD COUNT 7.9 10^3/uL (4.0-10.0)
[2018-05-28 15:41] LABS: ERYTHROCYTE SEDIMENTATION RATE 49 mm/hr (0-30)
[2018-05-28 15:42] LABS: LACTIC ACID SEPSIS PROTOCOL 1.7 MMOL/L (0.4-2.0)
[2018-05-28 15:44] LABS: ALBUMIN 2.5 GM/DL (3.2-5.2); ALBUMIN/GLOBULIN RATIO 0.57 (1.00-1.93); ALKALINE PHOSPHATASE 124 U/L (45-117); ALT/SGPT 12 U/L (12-78); ANION GAP 11 MEQ/L (8-16); AST/SGOT 20 U/L (7-37); BILIRUBIN,DIRECT 0.2 MG/DL (0.0-0.2); BILIRUBIN,TOTAL 0.5 MG/DL (0.2-1.0); BLOOD UREA NITROGEN 18 MG/DL (7-18); CALCIUM LEVEL 8.1 MG/DL (8.8-10.2); CARBON DIOXIDE LEVEL 27 MEQ/L (21-32); CHLORIDE LEVEL 97 MEQ/L (98-107); CPK CREATINE PHOSPHOKINASE 36 U/L (26-192); CREATININE FOR GFR 4.49 MG/DL (0.55-1.30); GLUCOSE, FASTING 133 MG/DL (70-100); MB/CK RELATIVE INDEX 2.78 (< OR =4); POTASSIUM SERUM 4.2 MEQ/L (3.5-5.1); SODIUM LEVEL 135 MEQ/L (136-145); TOTAL PROTEIN 6.9 GM/DL (6.4-8.2); TROPONIN I 0.03 NG/ML (< 0.10)
[2018-05-28] MEDS: PERCOCET 5MG/325MG TAB PO (15:56)
[2018-05-28] MEDS: MORPHINE 2 MG/ML 1ML SYRINGE (J2270) IV (21:35)
[2018-05-28 21:36] LABS: BEDSIDE GLUCOSE 104 MG/DL (83-110)
[2018-05-28] MEDS ORDERED: CEFEPIME HCL 1 GM in D5W MINI-BAG PLUS 50 ML IV (22:30)
[2018-05-28] MEDS ORDERED: VANCOMYCIN HCL 1,000 MG, VIAL MATE ADAPTER 1 EACH in D5W 250 ML IV (22:30)
[2018-05-28] MEDS: CEFEPIME HCL 1 GM in D5W MINI-BAG PLUS 50 ML IV (22:45)
[2018-05-28] MEDS ORDERED: VANCOMYCIN INTERMITTENT/PULSE DOSING BY CLINICAL PHARMACIST PER DOSING PROTOCOL XX (23:15)
[2018-05-28] MEDS: VANCOMYCIN HCL 1,000 MG, VIAL MATE ADAPTER 1 EACH in D5W 250 ML IV (23:40)
[2018-05-29] MEDS: methylPREDNISolone INJ 40 MG/1 ML VIAL (J2920) IV (00:11)
[2018-05-29] MEDS ORDERED: FLUTICASONE PROP 0.05% NASAL SPRAY 16 GM (FLONASE) (00:45)
[2018-05-29] MEDS ORDERED: ACETAMINOPHEN TAB 650MG DOSE (2X325MG) PO (00:45)
[2018-05-29] MEDS ORDERED: GLUCAGON FOR INJ 1 MG VIAL (J1610) SC (00:45)
[2018-05-29] MEDS ORDERED: GLUCOSE 4 GM CHEW TABLET PO (00:45)
[2018-05-29] MEDS ORDERED: DOCUSATE SODIUM 100 MG CAP PO (00:45)
[2018-05-29] MEDS ORDERED: DEXTROSE 50% 50 ML SYRINGE IV (00:45)
[2018-05-29] MEDS ORDERED: ALPRAZolam 0.25 MG TAB PO (00:45)
[2018-05-29] MEDS: predniSONE 20 MG TAB PO ×2 (02:23→09:00)
[2018-05-29] MEDS: PERCOCET 5MG/325MG TAB PO ×3 (04:05→17:45)
[2018-05-29] MEDS: HEPARIN SOD (PORCINE) 5000 UNITS/ML VIAL SC ×2 (05:46→14:00)
[2018-05-29] MEDS: LEVOTHYROXINE 150MCG TABLET (0.15MG) PO (05:46)
[2018-05-29 06:51] LABS: BEDSIDE GLUCOSE 154 MG/DL (83-110)
[2018-05-29] MEDS: HumaLOG INSULIN (NovoLOG) PER UNIT SC ×4 (07:30→21:00)
[2018-05-29] MEDS: (RENVELA) SEVELAMER **CARBONate** 800 MG TAB PO ×3 (08:00→18:01)
[2018-05-29 08:29] LABS: VANCOMYCIN RANDOM 14.3 UG/ML
[2018-05-29] MEDS: rOPINIRole 0.25 MG TAB(REQUIP) PO (09:00)
[2018-05-29] MEDS: GABAPENTIN 100 MG CAP PO ×2 (09:00→17:42)
[2018-05-29] MEDS: FLUoxetine 20 MG CAP PO (09:00)
[2018-05-29] MEDS: ASPIRIN 81 MG ENTERIC TAB PO (09:00)
[2018-05-29] MEDS: CLOPIDOGREL 75 MG TAB PO (09:00)
[2018-05-29] MEDS: amLODIPine 5 MG TAB PO (09:00)
[2018-05-29] MEDS: CARVedilol 6.25 MG TAB PO (09:00)
[2018-05-29] MEDS: SENOKOT S TAB PO (09:00)
[2018-05-29 09:24] LABS: ANION GAP 10 MEQ/L (8-16); BLOOD UREA NITROGEN 25 MG/DL (7-18); CALCIUM LEVEL 8.9 MG/DL (8.8-10.2); CARBON DIOXIDE LEVEL 26 MEQ/L (21-32); CHLORIDE LEVEL 98 MEQ/L (98-107); CREATININE FOR GFR 5.46 MG/DL (0.55-1.30); GLUCOSE, FASTING 160 MG/DL (70-100); POTASSIUM SERUM 4.9 MEQ/L (3.5-5.1); SODIUM LEVEL 134 MEQ/L (136-145)
[2018-05-29 12:26] LABS: BEDSIDE GLUCOSE 178 MG/DL (83-110)
[2018-05-29 13:48] LABS: URIC ACID 4.2 MG/DL (2.6-6.0)
[2018-05-29 17:19] LABS: BEDSIDE GLUCOSE 155 MG/DL (83-110)
[2018-05-29] MEDS: VANCOMYCIN HCL 500 MG in D5W MINI-BAG PLUS 100 ML IV (18:17)
[2018-05-29 20:24] LABS: BEDSIDE GLUCOSE 143 MG/DL (83-110)
[2018-05-30] MEDS: rOPINIRole 0.25 MG TAB(REQUIP) PO ×3 (00:11→22:12)
[2018-05-30] MEDS: SENOKOT S TAB PO ×3 (00:11→22:12)
[2018-05-30] MEDS: CARVedilol 6.25 MG TAB PO ×3 (00:11→22:12)
[2018-05-30] MEDS: GABAPENTIN 100 MG CAP PO ×4 (00:11→22:12)
[2018-05-30] MEDS: methylPREDNISolone INJ 40 MG/1 ML VIAL (J2920) IV (00:12)
[2018-05-30] MEDS: HEPARIN SOD (PORCINE) 5000 UNITS/ML VIAL SC ×4 (00:12→22:13)
[2018-05-30] MEDS: PERCOCET 5MG/325MG TAB PO ×3 (00:13→22:14)
[2018-05-30] MEDS: predniSONE 20 MG TAB PO (04:39)
[2018-05-30 06:22] LABS: BEDSIDE GLUCOSE 127 MG/DL (83-110)
[2018-05-30] MEDS: LEVOTHYROXINE 150MCG TABLET (0.15MG) PO (06:51)
[2018-05-30] MEDS: ASPIRIN 81 MG ENTERIC TAB PO (06:52)
[2018-05-30] MEDS: amLODIPine 5 MG TAB PO (06:53)
[2018-05-30] MEDS: CLOPIDOGREL 75 MG TAB PO (06:53)
[2018-05-30] MEDS: FLUoxetine 20 MG CAP PO (06:53)
[2018-05-30] MEDS: (RENVELA) SEVELAMER **CARBONate** 800 MG TAB PO ×3 (08:33→17:20)
[2018-05-30] MEDS: HumaLOG INSULIN (NovoLOG) PER UNIT SC ×4 (08:33→22:12)
[2018-05-30 11:38] LABS: BASO % 0.2 % (0.0-1.0); EOS % 0.2 % (0.0-3.0); HEMATOCRIT 30.2 % (36.0-47.0); HEMOGLOBIN 9.9 g/dl (12.0-15.5); IMMATURE GRANULOCYTE % 0.6 % (0-3.0); LYMPH # 0.5 10^3/uL (1.5-4.5); LYMPH % 5.2 % (24.0-44.0); MEAN CORPUSCULAR HEMOGLOBIN 31.4 pg (27.0-33.0); MEAN CORPUSCULAR HGB CONC 32.8 g/dl (32.0-36.5); MEAN CORPUSCULAR VOLUME 95.9 fl (80.0-96.0); MONO # 0.5 10^3/uL (0.0-0.8); NEUTROPHILS # 8.4 10^3/uL (1.8-7.7); NEUTROPHILS % 88.8 % (36.0-66.0); PLATELET COUNT, AUTOMATED 100 10^3/uL (150-450); RED BLOOD COUNT 3.15 10^6/uL (4.00-5.40); RED CELL DISTRIBUTION WIDTH 16.2 % (11.5-14.5); WHITE BLOOD COUNT 9.5 10^3/uL (4.0-10.0)
[2018-05-30] MEDS: LIDOCAINE 1% SDV 5 ML VIAL SQ (12:00)
[2018-05-30] MEDS: HEPARIN 1,000 UNITS/ML 10ML VIAL (FOR RADIOLOGY& DIALYSIS ONLY) IV (12:00)
[2018-05-30] MEDS ORDERED: VANCOMYCIN HCL 1,000 MG, VIAL MATE ADAPTER 1 EACH in D5W 250 ML IV (15:00)
[2018-05-30 15:02] LABS: BLOOD UREA NITROGEN 13 MG/DL (7-18); GLUCOSE, FASTING 114 MG/DL (70-100)
[2018-05-30 15:03] LABS: ANION GAP 8 MEQ/L (8-16); CARBON DIOXIDE LEVEL 28 MEQ/L (21-32); CHLORIDE LEVEL 99 MEQ/L (98-107); CREATININE FOR GFR 2.47 MG/DL (0.55-1.30); POTASSIUM SERUM 3.2 MEQ/L (3.5-5.1); SODIUM LEVEL 135 MEQ/L (136-145)
[2018-05-30] MEDS ORDERED: **VANCO AFTER HD** MISC XX (16:00)
[2018-05-30 16:42] LABS: BEDSIDE GLUCOSE 213 MG/DL (83-110)
[2018-05-30 21:06] LABS: BEDSIDE GLUCOSE 134 MG/DL (83-110)
[2018-05-31 06:23] LABS: BASO # 0.1 10^3/uL (0.0-0.2); BASO % 0.7 % (0.0-1.0); EOS # 0.2 10^3/uL (0.0-0.50); EOS % 1.9 % (0.0-3.0); HEMATOCRIT 30.7 % (36.0-47.0); HEMOGLOBIN 10.1 g/dl (12.0-15.5); IMMATURE GRANULOCYTE % 0.5 % (0-3.0); LYMPH # 0.9 10^3/uL (1.5-4.5); LYMPH % 11.1 % (24.0-44.0); MEAN CORPUSCULAR HEMOGLOBIN 31.9 pg (27.0-33.0); MEAN CORPUSCULAR HGB CONC 32.9 g/dl (32.0-36.5); MEAN CORPUSCULAR VOLUME 96.8 fl (80.0-96.0); NEUTROPHILS # 6.2 10^3/uL (1.8-7.7); NEUTROPHILS % 73.8 % (36.0-66.0); PLATELET COUNT, AUTOMATED 123 10^3/uL (150-450); RED BLOOD COUNT 3.17 10^6/uL (4.00-5.40); RED CELL DISTRIBUTION WIDTH 16.2 % (11.5-14.5); WHITE BLOOD COUNT 8.4 10^3/uL (4.0-10.0)
[2018-05-31] MEDS: LEVOTHYROXINE 150MCG TABLET (0.15MG) PO (06:32)
[2018-05-31] MEDS: HEPARIN SOD (PORCINE) 5000 UNITS/ML VIAL SC ×3 (06:32→20:51)
[2018-05-31 06:55] LABS: ANION GAP 9 MEQ/L (8-16); BLOOD UREA NITROGEN 22 MG/DL (7-18); CALCIUM LEVEL 8.6 MG/DL (8.8-10.2); CARBON DIOXIDE LEVEL 28 MEQ/L (21-32); CHLORIDE LEVEL 94 MEQ/L (98-107); CREATININE FOR GFR 3.92 MG/DL (0.55-1.30); GLOMERULAR FILTRATION RATE 11.7 (>32); GLUCOSE, FASTING 122 MG/DL (70-100); POTASSIUM SERUM 3.8 MEQ/L (3.5-5.1); SODIUM LEVEL 131 MEQ/L (136-145)
[2018-05-31] MEDS: HumaLOG INSULIN (NovoLOG) PER UNIT SC ×4 (09:00→20:44)
[2018-05-31] MEDS: SENOKOT S TAB PO ×2 (09:02→20:51)
[2018-05-31] MEDS: rOPINIRole 0.25 MG TAB(REQUIP) PO ×2 (09:02→20:51)
[2018-05-31] MEDS: GABAPENTIN 100 MG CAP PO ×3 (09:02→20:51)
[2018-05-31] MEDS: (RENVELA) SEVELAMER **CARBONate** 800 MG TAB PO ×3 (09:03→17:29)
[2018-05-31] MEDS: amLODIPine 5 MG TAB PO (09:03)
[2018-05-31] MEDS: CLOPIDOGREL 75 MG TAB PO (09:03)
[2018-05-31] MEDS: CARVedilol 6.25 MG TAB PO ×2 (09:03→20:52)
[2018-05-31] MEDS: ASPIRIN 81 MG ENTERIC TAB PO (09:03)
[2018-05-31] MEDS: predniSONE 20 MG TAB PO (09:03)
[2018-05-31] MEDS: FLUoxetine 20 MG CAP PO (09:03)
[2018-05-31] MEDS ORDERED: DARBEPOETIN 100 MCG/0.5 ML *DIALYSIS* SYRINGE (J0882) IV (11:30)
[2018-05-31 11:51] LABS: BEDSIDE GLUCOSE 183 MG/DL (83-110)
[2018-05-31] MEDS: PANTOPRAZOLE 40MG INJ (PROTONIX) (C9113) IV (13:06)
[2018-05-31] MEDS: PERCOCET 5MG/325MG TAB PO (13:24)
[2018-05-31] MEDS: PANTOPRAZOLE 40MG TAB (PROTONIX) PO ×2 (13:31→20:51)
[2018-05-31 20:31] LABS: BEDSIDE GLUCOSE 144 MG/DL (83-110)
[2018-06-01 03:04] LABS: BEDSIDE GLUCOSE 128 MG/DL (83-110)
[2018-06-01] MEDS: HEPARIN SOD (PORCINE) 5000 UNITS/ML VIAL SC ×3 (06:08→22:07)
[2018-06-01] MEDS: GABAPENTIN 100 MG CAP PO ×3 (06:09→20:36)
[2018-06-01] MEDS: predniSONE 20 MG TAB PO (06:09)
[2018-06-01] MEDS: (RENVELA) SEVELAMER **CARBONate** 800 MG TAB PO ×3 (06:09→18:46)
[2018-06-01] MEDS: LEVOTHYROXINE 150MCG TABLET (0.15MG) PO (06:09)
[2018-06-01] MEDS: ASPIRIN 81 MG ENTERIC TAB PO (06:09)
[2018-06-01] MEDS: CARVedilol 6.25 MG TAB PO ×2 (06:09→20:36)
[2018-06-01] MEDS: FLUoxetine 20 MG CAP PO (06:10)
[2018-06-01] MEDS: rOPINIRole 0.25 MG TAB(REQUIP) PO ×2 (06:10→20:37)
[2018-06-01] MEDS: amLODIPine 5 MG TAB PO (06:10)
[2018-06-01] MEDS: CLOPIDOGREL 75 MG TAB PO (06:10)
[2018-06-01] MEDS: SENOKOT S TAB PO ×2 (06:10→20:37)
[2018-06-01] MEDS: PANTOPRAZOLE 40MG TAB (PROTONIX) PO ×2 (06:10→20:36)
[2018-06-01] MEDS: PERCOCET 5MG/325MG TAB PO ×2 (06:25→15:30)
[2018-06-01 06:50] LABS: BASO % 0.3 % (0.0-1.0); EOS # 0.1 10^3/uL (0.0-0.50); EOS % 0.7 % (0.0-3.0); HEMATOCRIT 30.3 % (36.0-47.0); HEMOGLOBIN 10.2 g/dl (12.0-15.5); IMMATURE GRANULOCYTE % 0.7 % (0-3.0); LYMPH # 0.7 10^3/uL (1.5-4.5); LYMPH % 9.3 % (24.0-44.0); MEAN CORPUSCULAR HEMOGLOBIN 31.9 pg (27.0-33.0); MEAN CORPUSCULAR HGB CONC 33.7 g/dl (32.0-36.5); MEAN CORPUSCULAR VOLUME 94.7 fl (80.0-96.0); MONO # 0.8 10^3/uL (0.0-0.8); MONO % 10.6 % (0.0-5.0); NEUTROPHILS % 78.4 % (36.0-66.0); PLATELET COUNT, AUTOMATED 129 10^3/uL (150-450); RED CELL DISTRIBUTION WIDTH 16.1 % (11.5-14.5); WHITE BLOOD COUNT 7.7 10^3/uL (4.0-10.0)
[2018-06-01 07:12] LABS: ANION GAP 10 MEQ/L (8-16); BLOOD UREA NITROGEN 37 MG/DL (7-18); CALCIUM LEVEL 8.5 MG/DL (8.8-10.2); CARBON DIOXIDE LEVEL 26 MEQ/L (21-32); CHLORIDE LEVEL 92 MEQ/L (98-107); GLOMERULAR FILTRATION RATE 9.1 (>32); GLUCOSE, FASTING 174 MG/DL (70-100); POTASSIUM SERUM 4.1 MEQ/L (3.5-5.1); SODIUM LEVEL 128 MEQ/L (136-145)
[2018-06-01] MEDS: HumaLOG INSULIN (NovoLOG) PER UNIT SC ×4 (07:30→20:36)
[2018-06-01] MEDS: LIDOCAINE 1% SDV 5 ML VIAL SQ (11:45)
[2018-06-01] MEDS: HEPARIN 1,000 UNITS/ML 10ML VIAL (FOR RADIOLOGY& DIALYSIS ONLY) IV (11:45)
[2018-06-01] MEDS ORDERED: E-Z-GAS II EFFERVESCENT PACKET (SODIUM BICARB./CITRIC ACID/SIMETHICONE) As Ordered (13:03)
[2018-06-01] MEDS ORDERED: E-Z-PAQUE 96% w/w SUSP 176GM BTL As Ordered (13:03)
[2018-06-01] MEDS ORDERED: E-Z-HD 98% w/w 340GM SUSP BTL As Ordered (13:03)
[2018-06-02] MEDS: PERCOCET 5MG/325MG TAB PO ×2 (00:04→08:39)
[2018-06-02] MEDS: HEPARIN SOD (PORCINE) 5000 UNITS/ML VIAL SC (05:40)
[2018-06-02] MEDS: LEVOTHYROXINE 150MCG TABLET (0.15MG) PO (05:40)
[2018-06-02 06:11] LABS: BASO % 0.4 % (0.0-1.0); EOS # 0.1 10^3/uL (0.0-0.50); EOS % 1.3 % (0.0-3.0); HEMATOCRIT 31.3 % (36.0-47.0); HEMOGLOBIN 10.2 g/dl (12.0-15.5); IMMATURE GRANULOCYTE % 0.9 % (0-3.0); LYMPH % 12.8 % (24.0-44.0); MEAN CORPUSCULAR HEMOGLOBIN 31.8 pg (27.0-33.0); MEAN CORPUSCULAR HGB CONC 32.6 g/dl (32.0-36.5); MEAN CORPUSCULAR VOLUME 97.5 fl (80.0-96.0); MONO # 0.8 10^3/uL (0.0-0.8); MONO % 10.9 % (0.0-5.0); NEUTROPHILS # 5.7 10^3/uL (1.8-7.7); NEUTROPHILS % 73.7 % (36.0-66.0); RED BLOOD COUNT 3.21 10^6/uL (4.00-5.40); RED CELL DISTRIBUTION WIDTH 16.6 % (11.5-14.5); WHITE BLOOD COUNT 7.7 10^3/uL (4.0-10.0)
[2018-06-02 06:31] LABS: ANION GAP 8 MEQ/L (8-16); BLOOD UREA NITROGEN 21 MG/DL (7-18); C REACTIVE PROTEIN QUANTITATIV 8.12 MG/DL (0.00-0.30); CALCIUM LEVEL 9.2 MG/DL (8.8-10.2); CARBON DIOXIDE LEVEL 30 MEQ/L (21-32); CHLORIDE LEVEL 97 MEQ/L (98-107); CREATININE FOR GFR 3.29 MG/DL (0.55-1.30); GLOMERULAR FILTRATION RATE 14.3 (>32); GLUCOSE, FASTING 128 MG/DL (70-100); POTASSIUM SERUM 4.4 MEQ/L (3.5-5.1); SODIUM LEVEL 135 MEQ/L (136-145)
[2018-06-02 06:37] LABS: PLATELET COUNT, AUTOMATED 82 10^3/uL (150-450)
[2018-06-02 06:38] LABS: IMMATURE PLATELET FRACTION % 7.6 % (0.0-9.6)
[2018-06-02] MEDS: HumaLOG INSULIN (NovoLOG) PER UNIT SC ×2 (08:37→12:53)
[2018-06-02] MEDS: CARVedilol 6.25 MG TAB PO (08:38)
[2018-06-02] MEDS: PANTOPRAZOLE 40MG TAB (PROTONIX) PO (08:38)
[2018-06-02] MEDS: amLODIPine 5 MG TAB PO (08:38)
[2018-06-02] MEDS: ASPIRIN 81 MG ENTERIC TAB PO (08:38)
[2018-06-02] MEDS: CLOPIDOGREL 75 MG TAB PO (08:38)
[2018-06-02] MEDS: rOPINIRole 0.25 MG TAB(REQUIP) PO (08:38)
[2018-06-02] MEDS: GABAPENTIN 100 MG CAP PO (08:39)
[2018-06-02] MEDS: (RENVELA) SEVELAMER **CARBONate** 800 MG TAB PO ×3 (08:39→12:53)
[2018-06-02] MEDS: FLUoxetine 20 MG CAP PO (08:39)
[2018-06-02] MEDS: SENOKOT S TAB PO (08:39)
[2018-06-02] MEDS: FEBUXOSTAT 40 MG TABLET (ULORIC) PO (11:30)
[2018-06-02 12:01] LABS: BEDSIDE GLUCOSE 126 MG/DL (83-110)
[2018-06-02 12:01] LABS: BEDSIDE GLUCOSE 172 MG/DL (83-110)
[2018-06-02 12:01] LABS: BEDSIDE GLUCOSE 158 MG/DL (83-110)
[2018-06-02 12:01] LABS: BEDSIDE GLUCOSE 127 MG/DL (83-110)
== END 2018-06-02 12:59 | disposition home health service (06) | DRG 553 ==
LOC: M ED INP 05-29 00:34 → M MSPAV 05-29 15:55 → M ED 12:32
PROC: 5A1D70Z Performance of Urinary Filtration, Intermittent, Less than 6 Hours Per Day (ICD-10-PCS; principal; 2018-05-30)
DX: M11.832 Other specified crystal arthropathies, left wrist (principal); N18.6 End stage renal disease; I50.32 Chronic diastolic (congestive) heart failure; R64 Cachexia; I13.2 Hypertensive heart and chronic kidney disease with heart failure and with stage 5 chronic kidney disease, or end stage renal disease; Z66 Do not resuscitate; M11.232 Other chondrocalcinosis, left wrist; I25.10 Atherosclerotic heart disease of native coronary artery without angina pectoris; N25.0 Renal osteodystrophy; K21.9 Gastro-esophageal reflux disease without esophagitis; E11.22 Type 2 diabetes mellitus with diabetic chronic kidney disease; D64.9 Anemia, unspecified; E03.9 Hypothyroidism, unspecified; G25.81 Restless legs syndrome; M06.9 Rheumatoid arthritis, unspecified; I35.0 Nonrheumatic aortic (valve) stenosis; M48.00 Spinal stenosis, site unspecified; Z90.710 Acquired absence of both cervix and uterus; Z98.49 Cataract extraction status, unspecified eye; Z88.2 Allergy status to sulfonamides; Z88.1 Allergy status to other antibiotic agents; Z99.2 Dependence on renal dialysis; Z95.828 Presence of other vascular implants and grafts; Z86.73 Personal history of transient ischemic attack (TIA), and cerebral infarction without residual deficits; Z87.891 Personal history of nicotine dependence; Z79.82 Long term (current) use of aspirin; Z79.02 Long term (current) use of antithrombotics/antiplatelets; Z68.24 Body mass index [BMI] 24.0-24.9, adult

== ENCOUNTER → 2018-06-09 | Outpatient (CLI) | payer MEDICARE, BC, OTHER | LOC: M PAIN 14:00 | DX: G62.9 Polyneuropathy, unspecified (principal); G89.29 Other chronic pain; E11.22 Type 2 diabetes mellitus with diabetic chronic kidney disease; N18.6 End stage renal disease; Z99.2 Dependence on renal dialysis; I48.91 Unspecified atrial fibrillation; I12.0 Hypertensive chronic kidney disease with stage 5 chronic kidney disease or end stage renal disease; E78.5 Hyperlipidemia, unspecified; E03.9 Hypothyroidism, unspecified; Z79.01 Long term (current) use of anticoagulants; Z79.82 Long term (current) use of aspirin; Z79.899 Other long term (current) drug therapy; Z88.2 Allergy status to sulfonamides; Z88.8 Allergy status to other drugs, medicaments and biological substances; Z86.73 Personal history of transient ischemic attack (TIA), and cerebral infarction without residual deficits; Z86.79 Personal history of other diseases of the circulatory system; Z87.891 Personal history of nicotine dependence | CPT/HCPCS: G0463 ==

== ENCOUNTER 2018-06-17 14:29 | Inpatient (IN) | payer MEDICARE, BC, OTHER ==
[2018-06-17 15:32] LABS: VENOUS BASE EXCESS 10.3 (-2.0-2.0); VENOUS HCO3 37.5 MEQ/L (23.0-27.0); VENOUS PARTIAL PRESSURE O2 34.3 mmHg (30.0-50.0); VENOUS PH 7.386 UNITS (7.330-7.430); VENOUS STANDARD HCO3 33.3 MEQ/L; VENOUS TOTAL CO2 39.5 MEQ/L (24.0-28.0)
[2018-06-17 15:33] LABS: BASO % 0.5 % (0.0-1.0); EOS # 0.2 10^3/uL (0.0-0.50); EOS % 2.3 % (0.0-3.0); HEMATOCRIT 33.7 % (36.0-47.0); HEMOGLOBIN 10.8 g/dl (12.0-15.5); IMMATURE GRANULOCYTE % 0.5 % (0-3.0); LYMPH # 0.5 10^3/uL (1.5-4.5); LYMPH % 6.3 % (24.0-44.0); MEAN CORPUSCULAR HEMOGLOBIN 31.9 pg (27.0-33.0); MEAN CORPUSCULAR VOLUME 99.4 fl (80.0-96.0); MONO # 0.6 10^3/uL (0.0-0.8); MONO % 6.7 % (0.0-5.0); NEUTROPHILS % 83.7 % (36.0-66.0); RED BLOOD COUNT 3.39 10^6/uL (4.00-5.40); RED CELL DISTRIBUTION WIDTH 16.7 % (11.5-14.5); WHITE BLOOD COUNT 8.4 10^3/uL (4.0-10.0)
[2018-06-17 15:41] LABS: INFLUENZA A AMPLIFICATION NEGATIVE (NEGATIVE); INFLUENZA B AMPLIFICATION NEGATIVE (NEGATIVE)
[2018-06-17 15:54] LABS: PLATELET COUNT, AUTOMATED 43 10^3/uL (150-450)
[2018-06-17 15:55] LABS: IMMATURE PLATELET FRACTION % 10.8 % (0.0-9.6)
[2018-06-17 15:58] LABS: ALBUMIN 2.9 GM/DL (3.2-5.2); ALBUMIN/GLOBULIN RATIO 0.62 (1.00-1.93); ALKALINE PHOSPHATASE 168 U/L (45-117); ALT/SGPT 13 U/L (12-78); ANION GAP 7 MEQ/L (8-16); AST/SGOT 26 U/L (7-37); BILIRUBIN,DIRECT 0.4 MG/DL (0.0-0.2); BLOOD UREA NITROGEN 14 MG/DL (7-18); CALCIUM LEVEL 8.8 MG/DL (8.8-10.2); CARBON DIOXIDE LEVEL 35 MEQ/L (21-32); CHLORIDE LEVEL 93 MEQ/L (98-107); CPK CREATINE PHOSPHOKINASE 44 U/L (26-192); GLOMERULAR FILTRATION RATE 16.6 (>32); GLUCOSE, FASTING 147 MG/DL (70-100); MB/CK RELATIVE INDEX 4.55 (< OR =4); NT-PRO BNP 29796 PG/ML (<450); POTASSIUM SERUM 3.3 MEQ/L (3.5-5.1); SODIUM LEVEL 135 MEQ/L (136-145); TOTAL PROTEIN 7.6 GM/DL (6.4-8.2); TROPONIN I < 0.02 NG/ML (< 0.10)
[2018-06-17] MEDS: LABETALOL HCL 100 MG/20 ML VIAL IV (16:03)
[2018-06-17] MEDS: IPRATROPIUM 0.5MG/ALBUTEROL 2.5MG INH SOL UD 3ML (DUONEB)(J7620) NEB ×3 (16:07→16:36)
[2018-06-17] MEDS ORDERED: ONDANSETRON 4MG/2ML VIAL (J2405) IV (17:45)
[2018-06-17] MEDS ORDERED: HEPARIN SOD (PORCINE) 5000 UNITS/ML VIAL SC (17:45)
[2018-06-17 18:02] LABS: C REACTIVE PROTEIN QUANTITATIV 3.15 MG/DL (0.00-0.30)
[2018-06-17 18:17] LABS: ERYTHROCYTE SEDIMENTATION RATE 52 mm/hr (0-30)
[2018-06-17 18:24] LABS: REASON FOR REVIEW PLATELET MORPHOLOGY; SLIDE REVIEW Report; SOURCE PERIPHERAL SMEAR
[2018-06-17 18:34] LABS: LDH LACTATE DEHYDROGENASE 265 U/L (84-246)
[2018-06-17 19:15] LABS: FIBRINOGEN 252 MG/DL (221-452)
[2018-06-17] MEDS: FUROSEMIDE 40 MG/4 ML VIAL (J1940) IV (19:17)
[2018-06-17] MEDS: POTASSIUM CHLORIDE 10 MEQ SR TABLET PO (19:18)
[2018-06-18] MEDS: FUROSEMIDE 40 MG/4 ML VIAL (J1940) IV ×2 (00:12→05:20)
[2018-06-18 05:01] LABS: HEMATOCRIT 30.7 % (36.0-47.0); HEMOGLOBIN 9.7 g/dl (12.0-15.5); MEAN CORPUSCULAR HEMOGLOBIN 31.6 pg (27.0-33.0); MEAN CORPUSCULAR HGB CONC 31.6 g/dl (32.0-36.5); RED BLOOD COUNT 3.07 10^6/uL (4.00-5.40); WHITE BLOOD COUNT 7.3 10^3/uL (4.0-10.0)
[2018-06-18 05:03] LABS: PLATELET COUNT, AUTOMATED 39 10^3/uL (150-450)
[2018-06-18 05:27] LABS: ANION GAP 7 MEQ/L (8-16); BLOOD UREA NITROGEN 18 MG/DL (7-18); CALCIUM LEVEL 8.9 MG/DL (8.8-10.2); CARBON DIOXIDE LEVEL 34 MEQ/L (21-32); CHLORIDE LEVEL 95 MEQ/L (98-107); CREATININE FOR GFR 3.64 MG/DL (0.55-1.30); GLOMERULAR FILTRATION RATE 12.8 (>32); GLUCOSE, FASTING 140 MG/DL (70-100); MAGNESIUM LEVEL 2.2 MG/DL (1.8-2.4); POTASSIUM SERUM 4.3 MEQ/L (3.5-5.1); SODIUM LEVEL 136 MEQ/L (136-145)
[2018-06-18] MEDS: amLODIPine 5 MG TAB PO (09:07)
[2018-06-18] MEDS: GABAPENTIN 100 MG CAP PO ×3 (09:07→21:03)
[2018-06-18] MEDS: LEVOTHYROXINE 150MCG TABLET (0.15MG) PO (09:08)
[2018-06-18] MEDS: CARVedilol 6.25 MG TAB PO ×2 (09:08→21:03)
[2018-06-18] MEDS ORDERED: CEFTAROLINE FOSAMIL IV (10:30)
[2018-06-18] MEDS ORDERED: D5W MINI IV (10:30)
[2018-06-18] MEDS: HEPARIN 1,000 UNITS/ML 10ML VIAL (FOR RADIOLOGY& DIALYSIS ONLY) IV (12:30)
[2018-06-18] MEDS: metroNIDAZOLE (FLAGYL) 500 MG TAB PO ×2 (14:29→21:03)
[2018-06-18] MEDS: ACETAMINOPHEN 500 MG TAB PO (14:29)
[2018-06-18] MEDS: rOPINIRole 0.25 MG TAB(REQUIP) PO ×2 (14:30→21:03)
[2018-06-18] MEDS ORDERED: DARBEPOETIN 100 MCG/0.5 ML *DIALYSIS* SYRINGE (J0882) IV (16:15)
[2018-06-18] MEDS: LIDOCAINE 5% (LIDODERM) PATCH TD (16:27)
[2018-06-18] MEDS: CEFTAROLINE FOSAMIL 200 MG in D5W 50 ML IV (16:28)
[2018-06-18] MEDS ORDERED: PILL CRUSHER/CUTTER 1 EACH XX (17:00)
[2018-06-18] MEDS: oxyCODONE 5MG TAB PO (17:29)
[2018-06-18] MEDS: CLOPIDOGREL 75 MG TAB PO (18:06)
[2018-06-18] MEDS: **NOTE PATIENT COMMENT** MISC XX (21:00)
[2018-06-19] MEDS: oxyCODONE 5MG TAB PO ×3 (01:09→22:08)
[2018-06-19] MEDS: CEFTAROLINE FOSAMIL 200 MG in D5W 50 ML IV ×2 (01:12→14:44)
[2018-06-19] MEDS: metroNIDAZOLE (FLAGYL) 500 MG TAB PO ×3 (05:36→21:44)
[2018-06-19] MEDS: LEVOTHYROXINE 150MCG TABLET (0.15MG) PO (05:36)
[2018-06-19 05:50] LABS: HEMATOCRIT 30.9 % (36.0-47.0); HEMOGLOBIN 9.8 g/dl (12.0-15.5); MEAN CORPUSCULAR HEMOGLOBIN 31.7 pg (27.0-33.0); MEAN CORPUSCULAR HGB CONC 31.7 g/dl (32.0-36.5); RED BLOOD COUNT 3.09 10^6/uL (4.00-5.40); RED CELL DISTRIBUTION WIDTH 16.9 % (11.5-14.5); WHITE BLOOD COUNT 6.4 10^3/uL (4.0-10.0)
[2018-06-19 05:51] LABS: PLATELET COUNT, AUTOMATED 44 10^3/uL (150-450)
[2018-06-19 05:52] LABS: IMMATURE PLATELET FRACTION % 12.7 % (0.0-9.6)
[2018-06-19 06:15] LABS: ANION GAP 7 MEQ/L (8-16); BLOOD UREA NITROGEN 14 MG/DL (7-18); CALCIUM LEVEL 8.7 MG/DL (8.8-10.2); CARBON DIOXIDE LEVEL 31 MEQ/L (21-32); CHLORIDE LEVEL 99 MEQ/L (98-107); CREATININE FOR GFR 2.84 MG/DL (0.55-1.30); GLUCOSE, FASTING 126 MG/DL (70-100); POTASSIUM SERUM 3.7 MEQ/L (3.5-5.1); SODIUM LEVEL 137 MEQ/L (136-145)
[2018-06-19] MEDS: amLODIPine 5 MG TAB PO (08:28)
[2018-06-19] MEDS: CARVedilol 6.25 MG TAB PO ×2 (08:28→21:44)
[2018-06-19] MEDS: FLUoxetine 20 MG CAP PO (08:29)
[2018-06-19] MEDS: LIDOCAINE 5% (LIDODERM) PATCH TD (08:29)
[2018-06-19] MEDS: GABAPENTIN 100 MG CAP PO ×3 (08:29→21:44)
[2018-06-19] MEDS: CLOPIDOGREL 75 MG TAB PO (08:29)
[2018-06-19] MEDS: rOPINIRole 0.25 MG TAB(REQUIP) PO ×2 (12:31→21:43)
[2018-06-19] MEDS: **NOTE PATIENT COMMENT** MISC XX (21:00)
[2018-06-20] MEDS: CEFTAROLINE FOSAMIL 200 MG in D5W 50 ML IV ×3 (00:21→23:55)
[2018-06-20 05:39] LABS: HEMATOCRIT 32.5 % (36.0-47.0); HEMOGLOBIN 10.3 g/dl (12.0-15.5); MEAN CORPUSCULAR HEMOGLOBIN 31.6 pg (27.0-33.0); MEAN CORPUSCULAR HGB CONC 31.7 g/dl (32.0-36.5); MEAN CORPUSCULAR VOLUME 99.7 fl (80.0-96.0); RED BLOOD COUNT 3.26 10^6/uL (4.00-5.40); WHITE BLOOD COUNT 8.2 10^3/uL (4.0-10.0)
[2018-06-20 05:45] LABS: PLATELET COUNT, AUTOMATED 57 10^3/uL (150-450)
[2018-06-20 06:00] LABS: ANION GAP 11 MEQ/L (8-16); BLOOD UREA NITROGEN 23 MG/DL (7-18); CALCIUM LEVEL 9.2 MG/DL (8.8-10.2); CARBON DIOXIDE LEVEL 26 MEQ/L (21-32); CHLORIDE LEVEL 97 MEQ/L (98-107); GLOMERULAR FILTRATION RATE 11.4 (>32); GLUCOSE, FASTING 154 MG/DL (70-100); MAGNESIUM LEVEL 2.3 MG/DL (1.8-2.4); POTASSIUM SERUM 4.1 MEQ/L (3.5-5.1); SODIUM LEVEL 134 MEQ/L (136-145)
[2018-06-20] MEDS: oxyCODONE 5MG TAB PO ×2 (06:22→14:17)
[2018-06-20] MEDS: FLUoxetine 20 MG CAP PO (06:22)
[2018-06-20] MEDS: LEVOTHYROXINE 150MCG TABLET (0.15MG) PO (06:22)
[2018-06-20] MEDS: GABAPENTIN 100 MG CAP PO ×3 (06:22→21:00)
[2018-06-20] MEDS: metroNIDAZOLE (FLAGYL) 500 MG TAB PO ×3 (06:22→22:00)
[2018-06-20] MEDS: CLOPIDOGREL 75 MG TAB PO (06:23)
[2018-06-20] MEDS: LIDOCAINE 5% (LIDODERM) PATCH TD (06:23)
[2018-06-20 08:08] LABS: HAPTOGLOBIN 34 mg/dL (34-200)
[2018-06-20] MEDS ORDERED: LIDOCAINE 1% SDV 5 ML VIAL SQ (10:45)
[2018-06-20] MEDS: amLODIPine 5 MG TAB PO (13:18)
[2018-06-20] MEDS: rOPINIRole 0.25 MG TAB(REQUIP) PO ×2 (13:19→21:00)
[2018-06-20] MEDS: CARVedilol 6.25 MG TAB PO ×2 (13:19→21:00)
[2018-06-20] MEDS: **NOTE PATIENT COMMENT** MISC XX (21:00)
[2018-06-21 05:27] LABS: MEAN CORPUSCULAR HEMOGLOBIN 31.7 pg (27.0-33.0); MEAN CORPUSCULAR HGB CONC 31.4 g/dl (32.0-36.5); MEAN CORPUSCULAR VOLUME 100.9 fl (80.0-96.0); RED BLOOD COUNT 3.47 10^6/uL (4.00-5.40); RED CELL DISTRIBUTION WIDTH 17.3 % (11.5-14.5)
[2018-06-21 05:28] LABS: IMMATURE PLATELET FRACTION % 11.5 % (0.0-9.6); PLATELET COUNT, AUTOMATED 70 10^3/uL (150-450)
[2018-06-21 05:29] LABS: ANION GAP 15 MEQ/L (8-16); BLOOD UREA NITROGEN 28 MG/DL (7-18); CALCIUM LEVEL 9.4 MG/DL (8.8-10.2); CARBON DIOXIDE LEVEL 22 MEQ/L (21-32); CHLORIDE LEVEL 95 MEQ/L (98-107); CREATININE FOR GFR 4.79 MG/DL (0.55-1.30); GLOMERULAR FILTRATION RATE 9.3 (>32); GLUCOSE, FASTING 135 MG/DL (70-100); MAGNESIUM LEVEL 2.4 MG/DL (1.8-2.4); POTASSIUM SERUM 4.4 MEQ/L (3.5-5.1); SODIUM LEVEL 132 MEQ/L (136-145)
[2018-06-21] MEDS: metroNIDAZOLE (FLAGYL) 500 MG TAB PO ×3 (05:46→21:55)
[2018-06-21] MEDS: LEVOTHYROXINE 150MCG TABLET (0.15MG) PO (05:46)
[2018-06-21] MEDS: oxyCODONE 5MG TAB PO ×3 (05:47→21:54)
[2018-06-21] MEDS: CLOPIDOGREL 75 MG TAB PO (05:47)
[2018-06-21] MEDS: FLUoxetine 20 MG CAP PO (05:48)
[2018-06-21] MEDS: GABAPENTIN 100 MG CAP PO ×3 (05:48→21:55)
[2018-06-21] MEDS: LIDOCAINE 5% (LIDODERM) PATCH TD (05:48)
[2018-06-21] MEDS ORDERED: SLF 3 ML SYR IV (11:30)
[2018-06-21] MEDS: rOPINIRole 0.25 MG TAB(REQUIP) PO ×2 (13:27→21:55)
[2018-06-21 13:36] LABS: LDH LACTATE DEHYDROGENASE 363 U/L (84-246)
[2018-06-21] MEDS: CEFTAROLINE FOSAMIL 200 MG in D5W 50 ML IV (14:46)
[2018-06-21] MEDS: CARVedilol 6.25 MG TAB PO ×2 (14:47→21:55)
[2018-06-21] MEDS: amLODIPine 5 MG TAB PO (14:47)
[2018-06-21] MEDS: SLF 3 ML SYR IV ×2 (14:47→22:00)
[2018-06-21] MEDS: HALOPERIDOL 0.5 MG TAB PO (18:14)
[2018-06-21] MEDS: HALOPERIDOL 5 MG/ML VIAL (J1630) IM (20:50)
[2018-06-21] MEDS: **NOTE PATIENT COMMENT** MISC XX (21:00)
[2018-06-22] MEDS: CEFTAROLINE FOSAMIL 200 MG in D5W 50 ML IV
[2018-06-22] MEDS: LEVOTHYROXINE 150MCG TABLET (0.15MG) PO (05:50)
[2018-06-22] MEDS: metroNIDAZOLE (FLAGYL) 500 MG TAB PO (05:50)
[2018-06-22] MEDS: SLF 3 ML SYR IV ×3 (06:00→22:00)
[2018-06-22 06:04] LABS: HEMATOCRIT 31.9 % (36.0-47.0); HEMOGLOBIN 10.1 g/dl (12.0-15.5); MEAN CORPUSCULAR HEMOGLOBIN 31.5 pg (27.0-33.0); MEAN CORPUSCULAR HGB CONC 31.7 g/dl (32.0-36.5); MEAN CORPUSCULAR VOLUME 99.4 fl (80.0-96.0); RED BLOOD COUNT 3.21 10^6/uL (4.00-5.40); RED CELL DISTRIBUTION WIDTH 17.2 % (11.5-14.5); WHITE BLOOD COUNT 6.9 10^3/uL (4.0-10.0)
[2018-06-22 06:05] LABS: PLATELET COUNT, AUTOMATED 50 10^3/uL (150-450)
[2018-06-22 06:06] LABS: IMMATURE PLATELET FRACTION % 12.4 % (0.0-9.6)
[2018-06-22 06:32] LABS: ANION GAP 12 MEQ/L (8-16); BLOOD UREA NITROGEN 19 MG/DL (7-18); CARBON DIOXIDE LEVEL 27 MEQ/L (21-32); CHLORIDE LEVEL 97 MEQ/L (98-107); CREATININE FOR GFR 3.64 MG/DL (0.55-1.30); GLOMERULAR FILTRATION RATE 12.8 (>32); GLUCOSE, FASTING 96 MG/DL (70-100); MAGNESIUM LEVEL 2.1 MG/DL (1.8-2.4); POTASSIUM SERUM 3.5 MEQ/L (3.5-5.1); SODIUM LEVEL 136 MEQ/L (136-145)
[2018-06-22] MEDS: CLOPIDOGREL 75 MG TAB PO (08:19)
[2018-06-22] MEDS: LIDOCAINE 5% (LIDODERM) PATCH TD (08:19)
[2018-06-22] MEDS: CARVedilol 6.25 MG TAB PO ×2 (08:20→20:20)
[2018-06-22] MEDS: GABAPENTIN 100 MG CAP PO ×3 (08:20→20:20)
[2018-06-22] MEDS: FLUoxetine 20 MG CAP PO (08:20)
[2018-06-22] MEDS: amLODIPine 5 MG TAB PO (08:20)
[2018-06-22] MEDS: ACETAMINOPHEN 500 MG TAB PO (08:21)
[2018-06-22] MEDS: oxyCODONE 5MG TAB PO ×2 (08:21→14:08)
[2018-06-22] MEDS: risperiDONE 0.5 MG TAB PO ×2 (11:40→20:20)
[2018-06-22] MEDS: rOPINIRole 0.25 MG TAB(REQUIP) PO ×2 (14:09→20:20)
[2018-06-22] MEDS ORDERED: HALOPERIDOL 5 MG/ML VIAL (J1630) IM (16:15)
[2018-06-22] MEDS: MORPHINE 10MG/0.5ML ORAL CONCENTRATE SOLUTION U/D SL (17:11)
[2018-06-22] MEDS: predniSONE 20 MG TAB PO (20:19)
[2018-06-22] MEDS: **NOTE PATIENT COMMENT** MISC XX (20:20)
[2018-06-23] MEDS: MORPHINE 10MG/0.5ML ORAL CONCENTRATE SOLUTION U/D SL (02:17)
[2018-06-23] MEDS: LEVOTHYROXINE 150MCG TABLET (0.15MG) PO (05:11)
[2018-06-23] MEDS: SLF 3 ML SYR IV ×3 (05:12→22:20)
[2018-06-23] MEDS: oxyCODONE 5MG TAB PO ×2 (05:12→18:33)
[2018-06-23 05:47] LABS: HEMATOCRIT 36.9 % (36.0-47.0); HEMOGLOBIN 11.8 g/dl (12.0-15.5); MEAN CORPUSCULAR HEMOGLOBIN 31.6 pg (27.0-33.0); MEAN CORPUSCULAR VOLUME 98.9 fl (80.0-96.0); RED BLOOD COUNT 3.73 10^6/uL (4.00-5.40); RED CELL DISTRIBUTION WIDTH 17.6 % (11.5-14.5); WHITE BLOOD COUNT 8.1 10^3/uL (4.0-10.0)
[2018-06-23 05:49] LABS: PLATELET COUNT, AUTOMATED 61 10^3/uL (150-450)
[2018-06-23 06:05] LABS: ANION GAP 13 MEQ/L (8-16); BLOOD UREA NITROGEN 31 MG/DL (7-18); CALCIUM LEVEL 8.9 MG/DL (8.8-10.2); CARBON DIOXIDE LEVEL 24 MEQ/L (21-32); CHLORIDE LEVEL 96 MEQ/L (98-107); CREATININE FOR GFR 4.86 MG/DL (0.55-1.30); GLOMERULAR FILTRATION RATE 9.1 (>32); GLUCOSE, FASTING 200 MG/DL (70-100); MAGNESIUM LEVEL 2.2 MG/DL (1.8-2.4); POTASSIUM SERUM 4.2 MEQ/L (3.5-5.1); SODIUM LEVEL 133 MEQ/L (136-145)
[2018-06-23 08:06] LABS: HEPARIN INDUCED PLATELET ABY 0.303 OD (0.000-0.400)
[2018-06-23 08:06] LABS: UNFRACTIONATED HEPARIN HI DOSE 11 % (0-20); UNFRACTIONATED HEPARIN LOW DOS 69 % (0-20)
[2018-06-23] MEDS: FLUoxetine 20 MG CAP PO ×2 (09:00→10:01)
[2018-06-23] MEDS: CARVedilol 6.25 MG TAB PO ×2 (09:00→22:01)
[2018-06-23] MEDS: amLODIPine 5 MG TAB PO (09:00)
[2018-06-23] MEDS: risperiDONE 0.5 MG TAB PO ×3 (09:00→22:01)
[2018-06-23] MEDS: GABAPENTIN 100 MG CAP PO ×4 (09:00→22:00)
[2018-06-23] MEDS: CLOPIDOGREL 75 MG TAB PO ×2 (09:00→10:00)
[2018-06-23] MEDS: LIDOCAINE 5% (LIDODERM) PATCH TD (10:00)
[2018-06-23] MEDS: rOPINIRole 0.25 MG TAB(REQUIP) PO ×2 (12:39→22:00)
[2018-06-23] MEDS: MORPHINE SULFATE ORAL SOLN 10 MG/5 ML UD PO ×2 (14:40→19:43)
[2018-06-23] MEDS: ACETAMINOPHEN 500 MG TAB PO (22:01)
[2018-06-23] MEDS: **NOTE PATIENT COMMENT** MISC XX (22:02)
[2018-06-24] MEDS: MORPHINE SULFATE ORAL SOLN 10 MG/5 ML UD PO ×2 (00:51→15:47)
[2018-06-24] MEDS: LEVOTHYROXINE 150MCG TABLET (0.15MG) PO (06:31)
[2018-06-24] MEDS: SLF 3 ML SYR IV (06:32)
[2018-06-24 06:47] LABS: HEMATOCRIT 36.7 % (36.0-47.0); MEAN CORPUSCULAR HEMOGLOBIN 32.3 pg (27.0-33.0); MEAN CORPUSCULAR HGB CONC 32.7 g/dl (32.0-36.5); MEAN CORPUSCULAR VOLUME 98.7 fl (80.0-96.0); RED BLOOD COUNT 3.72 10^6/uL (4.00-5.40); RED CELL DISTRIBUTION WIDTH 18.6 % (11.5-14.5); WHITE BLOOD COUNT 7.1 10^3/uL (4.0-10.0)
[2018-06-24 06:56] LABS: ANION GAP 9 MEQ/L (8-16); BLOOD UREA NITROGEN 22 MG/DL (7-18); CALCIUM LEVEL 8.5 MG/DL (8.8-10.2); CARBON DIOXIDE LEVEL 29 MEQ/L (21-32); CHLORIDE LEVEL 99 MEQ/L (98-107); CREATININE FOR GFR 3.74 MG/DL (0.55-1.30); GLOMERULAR FILTRATION RATE 12.4 (>32); GLUCOSE, FASTING 165 MG/DL (70-100); MAGNESIUM LEVEL 2.1 MG/DL (1.8-2.4); POTASSIUM SERUM 3.2 MEQ/L (3.5-5.1); SODIUM LEVEL 137 MEQ/L (136-145)
[2018-06-24 07:16] LABS: PLATELET COUNT, AUTOMATED 37 10^3/uL (150-450)
[2018-06-24] MEDS: CLOPIDOGREL 75 MG TAB PO (09:00)
[2018-06-24] MEDS: LIDOCAINE 5% (LIDODERM) PATCH TD (10:02)
[2018-06-24] MEDS: POTASSIUM CHLORIDE 10 MEQ SR TABLET PO ×2 (10:04→15:48)
[2018-06-24] MEDS: GABAPENTIN 100 MG CAP PO ×3 (10:04→20:27)
[2018-06-24] MEDS: FLUoxetine 20 MG CAP PO (10:05)
[2018-06-24] MEDS: risperiDONE 0.5 MG TAB PO ×2 (10:07→20:26)
[2018-06-24] MEDS: amLODIPine 5 MG TAB PO (10:14)
[2018-06-24] MEDS: CARVedilol 6.25 MG TAB PO ×2 (10:14→20:27)
[2018-06-24] MEDS: SCOPOLAMINE 1MG TRANSDERMAL PATCH TOP (15:02)
[2018-06-24] MEDS ORDERED: POTASSIUM CHLORIDE 10 MEQ SR TABLET As Ordered (15:42)
[2018-06-24] MEDS: rOPINIRole 0.25 MG TAB(REQUIP) PO ×2 (15:48→20:26)
[2018-06-24] MEDS: oxyCODONE 5MG TAB PO (17:55)
[2018-06-24] MEDS: **NOTE PATIENT COMMENT** MISC XX (21:01)
[2018-06-25] MEDS: LEVOTHYROXINE 150MCG TABLET (0.15MG) PO (05:45)
[2018-06-25] MEDS: FLUoxetine 20 MG CAP PO (09:00)
[2018-06-25] MEDS: CARVedilol 6.25 MG TAB PO ×2 (09:00→21:31)
[2018-06-25] MEDS: CLOPIDOGREL 75 MG TAB PO (09:00)
[2018-06-25] MEDS: LIDOCAINE 5% (LIDODERM) PATCH TD (09:00)
[2018-06-25] MEDS: GABAPENTIN 100 MG CAP PO ×3 (09:00→21:31)
[2018-06-25] MEDS: amLODIPine 5 MG TAB PO (09:00)
[2018-06-25] MEDS: rOPINIRole 0.25 MG TAB(REQUIP) PO ×2 (12:00→21:31)
[2018-06-25] MEDS: **NOTE PATIENT COMMENT** MISC XX (21:31)
[2018-06-25] MEDS: risperiDONE 0.25 MG TAB PO (21:31)
[2018-06-26] MEDS: LEVOTHYROXINE 150MCG TABLET (0.15MG) PO (06:27)
[2018-06-26] MEDS: CARVedilol 6.25 MG TAB PO (08:21)
[2018-06-26] MEDS: amLODIPine 5 MG TAB PO (08:23)
[2018-06-26] MEDS: GABAPENTIN 100 MG CAP PO (08:23)
[2018-06-26] MEDS: CLOPIDOGREL 75 MG TAB PO (08:23)
[2018-06-26] MEDS: LIDOCAINE 5% (LIDODERM) PATCH TD (08:24)
[2018-06-26] MEDS: risperiDONE 0.25 MG TAB PO (08:24)
[2018-06-26] MEDS: FLUoxetine 20 MG CAP PO (08:24)
== END 2018-06-26 08:55 | disposition expired | DRG 193 ==
LOC: M MSPAV 06-23 15:42 → M ED 14:29 → M ED INP 17:41 → M PCU 20:00
PROC: 5A1D70Z Performance of Urinary Filtration, Intermittent, Less than 6 Hours Per Day (ICD-10-PCS; principal; 2018-06-18)
DX: J18.9 Pneumonia, unspecified organism (principal); J96.01 Acute respiratory failure with hypoxia; N18.6 End stage renal disease; I50.31 Acute diastolic (congestive) heart failure; J90 Pleural effusion, not elsewhere classified; I13.2 Hypertensive heart and chronic kidney disease with heart failure and with stage 5 chronic kidney disease, or end stage renal disease; D69.6 Thrombocytopenia, unspecified; E03.9 Hypothyroidism, unspecified; I25.10 Atherosclerotic heart disease of native coronary artery without angina pectoris; G25.81 Restless legs syndrome; I35.0 Nonrheumatic aortic (valve) stenosis; E87.6 Hypokalemia; R13.10 Dysphagia, unspecified; M10.9 Gout, unspecified; D63.1 Anemia in chronic kidney disease; E11.9 Type 2 diabetes mellitus without complications; F41.9 Anxiety disorder, unspecified; F32.9 Major depressive disorder, single episode, unspecified; Z51.5 Encounter for palliative care; Z79.899 Other long term (current) drug therapy; Z88.2 Allergy status to sulfonamides; Z88.8 Allergy status to other drugs, medicaments and biological substances; Z86.73 Personal history of transient ischemic attack (TIA), and cerebral infarction without residual deficits; M06.9 Rheumatoid arthritis, unspecified; K21.9 Gastro-esophageal reflux disease without esophagitis; Z87.891 Personal history of nicotine dependence